=== PATIENT | female | born 1965 | race Caucasian/White ===

== ENCOUNTER 2021-04-11 14:40 | Emergency (ER) | payer OTHER, SELFPAY ==
--- NOTE | ~2021-04-11 | CT_ITS ---
EXAMINATION: CT HEAD WITHOUT CONTRAST CLINICAL INFORMATION: Headache and nausea. COMPARISON: MRI brain dated 12/26/2018. TECHNIQUE: Contiguous axial imaging was performed from the skull base to vertex without intravenous administration of contrast. This CT examination was performed using dose optimization techniques as appropriate, variously including the following: *Automated exposure control *Adjustment of mA and/or kV according to patient size (this includes techniques or standardized protocols for targeted exams where dose is matched to indication/reason for exam; i.e. extremities or head) *Use of iterative reconstruction technique DLP: 560 mGy-cm FINDINGS: There is no evidence of acute intracranial hemorrhage or territorial infarction. No abnormal mass effect or midline shift is seen. Wang to white matter differentiation is well preserved. No extra-axial fluid collections are identified. The ventricles are normal in size. There is no abnormal attenuation within the brain parenchyma. The osseous structures and soft tissues are normal. The mastoid air cells and visualized portions of the paranasal sinuses are well aerated. CT/CT head/brain wo con IMPRESSION: No acute intracranial pathology.
[2021-04-11 15:29] VITALS: BP 179/94; PULSE 89; RESP 18; TEMP 37.2; O2SAT 99; BMI 22.3
--- NOTE | 2021-04-11 16:48 | ECG_ITS ---
Test Reason : CHEST PAIN Blood Pressure : / mmHG Vent. Rate : 066 BPM Atrial Rate : 066 BPM P-R Int : 138 ms QRS Dur : 080 ms QT Int : 432 ms P-R-T Axes : 060 067 033 degrees QTc Int : 452 ms Normal sinus rhythm with sinus arrhythmia Possible Left atrial enlargement Borderline ECG When compared with ECG of 30-NOV-2018 08:28, No significant change was found Referred By: Lois Carty Electronically Signed By:AMADOR JERONIMO
--- NOTE | 2021-04-11 16:54 | ED.HA ---
HPI - Headache General Chief Complaint: Headache Stated Complaint: head pain,vomiting Time Seen by Provider: 04/11/21 16:36 Source: patient Mode of arrival: ambulatory History of Present Illness HPI Narrative: 55-year-old female with a past medical history of colitis, tachycardia, migraines, presenting to the ED complaining of headache, nausea, vomiting x4 days. Headache not maximal in onset, has been waxing and waning. Reports associated chest burning/heartburn likely from emesis, toe cramping, lightheadedness/dizziness and numbness/paresthesias in fingers/toes. Headache pain described as taking entire head, with associated neck pain. Denies visual change/loss, weakness, SOB, abdominal pain, diarrhea Denies taking anticoagulation MD elicited complaint: headache Related Data Home Medications Medication Instructions Recorded Confirmed vohnyklfmx-yztlzuwjfetiv-gzmjsjky 1 tab PO Q4-6H PRN 09/12/20 50 mg-325 mg-40 mg tablet Previous Rx's Medication Instructions Recorded budesonide 3 mg 3 mg PO DAILY #30 cap 07/01/20 capsule,delayed,extended release propranolol 80 mg capsule,24 80 mg PO BEDTIME #30 cap 08/31/20 hr,extended release zolpidem 10 mg tablet 10 mg PO BEDTIME PRN 3 Days #30 tab 02/10/21 sumatriptan succinate 50 mg tablet See Rx Instructions PO .COMPLEX 30 03/29/21 Days #30 tab azithromycin 250 mg tablet See Rx Instructions PO .COMPLEX #6 04/11/21 tab tigcqahvug-npeekqufsatml-nxvmuxaf 1 cap PO Q4-6H PRN #14 cap 04/11/21 50 mg-300 mg-40 mg capsule (Fioricet) ketorolac 10 mg tablet 10 mg PO TID PRN 5 Days #15 tab 04/11/21 ondansetron HCl 4 mg tablet 4 mg PO Q8H PRN #10 tab 04/11/21 (Zofran) Allergies Allergy/AdvReac Type Severity Reaction Status Date / Time levofloxacin [Levaquin] Allergy Unknown chest pains Unverified 12/23/19 00:00 penicillin V Allergy Unknown rash, Verified 12/23/19 00:00 vomiting Sulfa (Sulfonamide Allergy Unknown welts, rash Unverified 12/23/19 00:00 Antibiotics) Penicillins AdvReac Mild RASH Unverified 05/13/20 15:07 NAUSEA VOMITING trazodone AdvReac Unknown nausea, Verified 12/23/19 00:00 dizziness peniciliin Allergy Unknown vomitting/r Uncoded 03/04/19 00:00 danielle Review of Systems Review of Systems: Constitutional: No Fever, + Chills, No Fatigue, No Malaise ENT/Mouth: No Hearing loss, No Ear Pain, No Nasal Congestion, No Swallowing Difficulty Eyes: No Eye Pain, No Swelling, No Redness, No Vision Changes Cardiovascular: + Chest burning, No SOB Respiratory: No Cough, No Dyspnea Gastrointestinal: + Nausea, + Vomiting, No Diarrhea, No Constipation, No Abdominal pain, No Hematochezia, No Melena Genitourinary: No Dysuria, No Urinary Frequency, No Hematuria,, No Flank Pain Musculoskeletal: No joint pain, No Myalgias, No Joint Swelling Skin: No Skin Lesions, No rash Neuro: No Weakness, + Numbness, + Paresthesias, No Loss of Consciousness, + Dizziness, +Lightheadedness, + Headache Yes all other systems are reviewed and are negative Neurologic: Denies Abnormal speech present [facility], [facility] Past Medical History Attestation statement: The following information was validated with the patient. Medical History (Updated 04/11/21 @ 19:51 by EDYTA Olivares) Colitis Tachycardia Social History Social History Use of substances other than those prescribed or required for medical reasons: No Advance Directives: No Advance Directives Information Provided: Yes Patient : No Physical Exam Vital Signs: Vital Signs: Last Vital Signs Temp 98.9 F 04/11/21 15:29 Pulse 89 04/11/21 15:29 Resp 18 04/11/21 15:29 BP 179/94 H 04/11/21 15:29 Pulse Ox 99 04/11/21 15:29 Body Mass Index 22.3 Const: General: cooperative, no acute distress and well developed Orientation/consciousness: patient oriented x3 Limitations: no limitations HENMT: Head: Yes normal to inspection Ears: hearing grossly normal bilaterally General nose exam: Normal external nose present Face and sinus: Yes normal facial exam Mouth: Normal oral and palatal mucosa present Throat: Yes posterior oropharynx normal Eyes: General: appearance normal, both eyes and all related structures Pupils: Equal, round and reactive pupils present EOM: EOMs intact bilaterally Neck: Neck: Yes normal visual inspection and Yes no meningeal signs Resp: Effort & Inspection: normal respiratory effort Auscultation: clear to auscultation bilaterally, no rales, no rhonchi and no wheezes Cardio: Rate: regular rate Heart sounds: S1 normal heart sound present and S2 normal heart sound present GI: Inspection: Yes normal to inspection Palpation (GI): Soft to palpation, nontender, no guarding and not rigid Skin: Rashes: no rashes Wounds: no wounds Neuro: General: patient oriented x3, gait normal, tone normal, moves all extremities, no meningeal signs, no focal motor deficits and CN's II-XI intact bilaterally Cranial nerves: Yes Equal, round and reactive pupils present and Yes Nystagmus not present Cognition (Neuro): normal cognition Speech: No Abnormal speech present Gait exam (Neuro): Normal gait present Motor exam (neuro): 5/5 motor strength present throughout, Pronator motor function not present and no tremor noted Coordination: mhnwgd-im-wapt test normal Romberg Test: Negative Extrem: General: Yes normal to inspection and Yes no pedal edema Course Course Course Narrative: -labs unremarkable, troponin negative CT head/brain wo con IMPRESSION: No acute intracranial pathology. >>1920--on re-evaluation patient reports symptomatic improvement. Lab and imaging results discussed including worrisome signs and symptoms and strict return precautions. She verbalized understanding feel safe for discharge home MDM - Headache MDM Narrative Medical decision making narrative: 55-year-old female with a past medical history of colitis, tachycardia, migraines, presenting to the ED complaining of headache, nausea, vomiting x4 days. Reports associated chest burning/heartburn, toe cramping, lightheadedness/dizziness and numbness/paresthesias in fingers/toes. On exam VSS, NAD, no focal neuro deficits, concern for complicated migraine headache. Lower concern for SAH/ICH or CVT. Unlikely meningitis/encephalitis Plan: EKG, labs, UA, head CT, symptomatic treatment, reassess Medical Records Attestation: I reviewed the patient's medical records. Lab Data Attestation: I reviewed the patient's lab results. Result diagrams: 04/11/21 17:05 04/11/21 17:05 Labs: Lab Results 04/11/21 04/11/21 04/11/21 Range/Units 17:05 17:05 17:05 WBC 8.0 (4.8-10.8) X10*3/uL RBC 4.79 (4.20-5.50) X10*6/uL Hgb 14.9 (12.0-16.0) g/dl Hct 43.7 (37-47) % MCV 91.2 (80-98) fL MCH 31.1 (27.0-33.0) pg MCHC 34.1 (31.0-35.0) g/dl RDW 12.6 (11.0-16.0) % Plt Count 285 (160-400) X10*3/uL MPV 9.7 (9.4-12.3) fL Immature Gran % (Auto) 0.3 (0.0-0.4) % Neut % (Auto) 79.1 H (45-73) % Lymph % (Auto) 15.4 L (20-40) % [place] % (Auto) 4.3 (2-11) % Eos % (Auto) 0.4 (0-4) % Baso % (Auto) 0.5 (0-2) % Lymph # (Auto) 1.2 (1.2-4.9) X10*3/uL [place] # (Auto) 0.3 (0.1-1.2) X10*3/uL Eos # (Auto) 0.0 (0.0-0.4) X10*3/uL Baso # (Auto) 0.0 (0.0-0.2) X10*3/uL Abs Immat Gran (auto) 0.02 (0.00-0.03) X10*3/uL Absolute Neuts (auto) 6.3 (2.0-8.3) X10*3/uL Absolute Nucleated RBC 0.000 (0.0-0.012) X10*3/uL Nucleated RBC % (auto) 0.0 (0.0-0.2) /100WBC Sodium 140 (135-145) mmol/L Potassium 4.1 (3.3-5.1) mmol/L Chloride 104 (96-108) mmol/L Carbon Dioxide 23 (22-29) mmol/L Anion Gap 17 (12-20) BUN 15 (9-16) mg/dL Creatinine 0.78 (0.5-1.4) mg/dL Estim Creat Clear Calc 65.8 Estimated GFR > 60 Random Glucose 119 H (60-115) mg/dL Calcium 10.3 H (8.4-10.2) mg/dL Magnesium 2.3 (1.6-2.6) mg/dL Total Bilirubin 0.9 (0.0-1.0) mg/dL Direct Bilirubin 0.4 (0.0-0.5) mg/dL AST 12 (5-31) U/L ALT 15 (0-31) U/L Alkaline Phosphatase 37 L (39-117) U/L Troponin I High Sens < 3.5 (<3.5-17.0) ng/L Total Protein 7.6 (6.5-8.0) g/dL Albumin 4.7 (3.5-5.0) g/dL Discharge Plan Discharge Clinical Impression: Headache Qualifiers: Headache type: unspecified Headache chronicity pattern: episodic headache Intractability: not intractable Qualified Code(s): R51.9 - Headache, unspecified Patient Disposition: Home, Self-Care Instructions: Acute Headache (ED) Additional Instructions: Your blood work and head CT were reassuring today Fioricet is a headache medication, take as needed Ketorolac is an anti-inflammatory/pain medication, take with food Zofran as antinausea medication If her symptoms persist or worsen, headache becomes unbearable, persistent nausea or vomiting please return to the ED Continue home prescribed medications and follow up with her PCP Prescriptions: New ketorolac 10 mg tablet 10 mg PO TID PRN (Reason: pain) 5 Days Qty: 15 RF: 0 ondansetron HCl [Zofran] 4 mg tablet 4 mg PO Q8H PRN (Reason: nausea and vomiting) Qty: 10 RF: 0 wbclqminiw-pfezwubfazddz-mzjo [Fioricet] 50-300-40 mg capsule 1 cap PO Q4-6H PRN (Reason: headache) Qty: 14 RF: 0 No Action budesonide 3 mg capsule,delayed,extend.release 3 mg PO DAILY Qty: 30 RF: 3 propranolol 80 mg capsule,extended release 24 hr 80 mg PO BEDTIME Qty: 30 RF: 3 wseykmcauh-rtwvcblfbbrwy-opsz 50-325-40 mg tablet 1 tab PO Q4-6H PRNRF: 0 zolpidem 10 mg tablet 10 mg PO BEDTIME PRN (Reason: insomnia) 3 Days Qty: 30 RF: 2 sumatriptan succinate 50 mg tablet See Rx Instructions PO .COMPLEX 30 Days Qty: 30 RF: 3 azithromycin 250 mg tablet See Rx Instructions PO .COMPLEX Qty: 6 RF: 0 Referrals: Brice Gallagher MD [Primary Care Provider] - 2 days
[2021-04-11 17:09] LABS: MANUAL DIFF FLAG NO
[2021-04-11 17:13] LABS: Basophils Percent Auto 0.5 % (0-2); Eosinophils Percent Auto 0.4 % (0-4); Hematocrit 43.7 % (37-47); Hemoglobin 14.9 g/dl (12.0-16.0); Imm Gran Abs Auto 0.02 X10*3/uL (0.00-0.03); Imm Gran Pct Auto 0.3 % (0.0-0.4); Lymphocytes Absolute Auto 1.2 X10*3/uL (1.2-4.9); Lymphocytes Percent Auto 15.4 % (20-40); Mean Corpuscular HGB Conc 34.1 g/dl (31.0-35.0); Mean Corpuscular Hemoglobin 31.1 pg (27.0-33.0); Mean Corpuscular Volume 91.2 fL (80-98); Mean Platelet Volume 9.7 fL (9.4-12.3); Monocytes Absolute Auto 0.3 X10*3/uL (0.1-1.2); Monocytes Percent Auto 4.3 % (2-11); Neutrophils Absolute Auto 6.3 X10*3/uL (2.0-8.3); Neutrophils Percent Auto 79.1 % (45-73); Platelet Count 285 X10*3/uL (160-400); Red Blood Count 4.79 X10*6/uL (4.20-5.50); Red Cell Distribution Width 12.6 % (11.0-16.0)
[2021-04-11] MEDS: diphenhydrAMINE HCL 50 MG/ML VIAL 12.5 MG IVPUSH (17:17)
[2021-04-11] MEDS: Metoclopramide HCl 10 MG/2 ML VIAL IVPUSH (17:18)
[2021-04-11] MEDS: Famotidine/PF 20 MG/2 ML VIAL IVPUSH (17:18)
[2021-04-11] MEDS: Acetaminophen 325 MG TABLET 650 MG PO (17:18)
[2021-04-11] MEDS: Magnesium Hydrox/Alum Hydrox 30 ML ORAL.SUSP PO (17:18)
[2021-04-11] MEDS: Magnesium Sulfate/H2O 2 GM/50 ML PIGGYBACK IV (17:18)
[2021-04-11] MEDS: 0.9 % Sodium Chloride 1,000 ML 999 ML IVCONT (17:21)
[2021-04-11 17:33] LABS: Alanine Aminotransferase 15 U/L (0-31); Albumin Level 4.7 g/dL (3.5-5.0); Alkaline Phosphatase 37 U/L (39-117); Anion Gap 17 (12-20); Aspartate Amino Transferase 12 U/L (5-31); Bilirubin Direct 0.4 mg/dL (0.0-0.5); Bilirubin Total 0.9 mg/dL (0.0-1.0); Blood Urea Nitrogen 15 mg/dL (9-16); Calcium 10.3 mg/dL (8.4-10.2); Carbon Dioxide 23 mmol/L (22-29); Chloride 104 mmol/L (96-108); Creatinine Clr Calc Pharmacy 65.8; Estimated Glomerular Filt Rate > 60; Glucose Random 119 mg/dL (60-115); Magnesium 2.3 mg/dL (1.6-2.6); Potassium 4.1 mmol/L (3.3-5.1); Sodium 140 mmol/L (135-145); Total Protein 7.6 g/dL (6.5-8.0)
[2021-04-11 17:38] LABS: Troponin-I High Sensitivity < 3.5 ng/L (<3.5-17.0)
--- NOTE | 2021-04-11 19:13 | PC.NURSE ---
PT STATES IM FEELING MUCH BETTER, RATING PAIN 5/10. EDYTA SOSA AWARE.
== END 2021-04-11 20:23 | disposition home or self-care (01) ==
PROVIDERS: Physician Assistant; Emergency Provider Emergency Medicine; PCP Internal Medicine
DX: R51.9 Headache, unspecified (principal)
CPT/HCPCS: 36415; 70450; 80048; 80076; 83735; 84484; 85025; 93005; 96361; 96365; 96366; 96375; 99284; 99285; J1200; J2765; J3475

== ENCOUNTER → 2021-04-20 13:00 | Outpatient (BNVA) | payer OTHER, SELFPAY | PROVIDERS: PCP Internal Medicine; Referring Provider Internal Medicine; Visit Provider Internal Medicine ==

== ENCOUNTER → 2021-04-26 07:07 | Outpatient (REF) | payer OTHER, SELFPAY ==
--- NOTE | 2021-04-26 07:32 | HM_ITS ---
Total monitoring time 13 days and 12 hours. Underlying rhythm is sinus. Minimum heart rate 55/Min. Maximum 139/Min. Average 74/Min. No atrial fibrillation or flutter. No AV blocks or pauses. Very rare supraventricular ectopy. During patient's symptom of rapid heartbeat, underlying rhythm was sinus at 91/Min. Another time, patient event reported but no symptoms mentioned, and heart rate was sinus at 71/Min. MTDD
== END ==
LOC: HO.CARD 07:07
PROVIDERS: PCP Internal Medicine; Visit Provider Internal Medicine
DX: R00.2 Palpitations (principal)
CPT/HCPCS: 93246

== ENCOUNTER 2021-05-14 08:35 | Outpatient (REF) | payer OTHER, SELFPAY ==
[2021-05-14 09:05] LABS: MANUAL DIFF FLAG NO
[2021-05-14 09:11] LABS: Basophils Absolute Auto 0.1 X10*3/uL (0.0-0.2); Eosinophils Absolute Auto 0.2 X10*3/uL (0.0-0.4); Hematocrit 41.7 % (37-47); Imm Gran Abs Auto 0.02 X10*3/uL (0.00-0.03); Imm Gran Pct Auto 0.4 % (0.0-0.4); Lymphocytes Absolute Auto 1.2 X10*3/uL (1.2-4.9); Lymphocytes Percent Auto 23.6 % (20-40); Mean Corpuscular HGB Conc 33.6 g/dl (31.0-35.0); Mean Corpuscular Volume 92.3 fL (80-98); Mean Platelet Volume 9.7 fL (9.4-12.3); Monocytes Absolute Auto 0.5 X10*3/uL (0.1-1.2); Monocytes Percent Auto 9.8 % (2-11); Neutrophils Absolute Auto 3.2 X10*3/uL (2.0-8.3); Neutrophils Percent Auto 61.2 % (45-73); Platelet Count 271 X10*3/uL (160-400); Red Blood Count 4.52 X10*6/uL (4.20-5.50); White Blood Count 5.2 X10*3/uL (4.8-10.8)
[2021-05-14 09:58] LABS: Erythrocyte Sedimentation Rate 7 MM/HR (0-20)
[2021-05-14 10:09] LABS: Appearance Urine HAZY; Color Urine YELLOW; Glucose Urine UA NEG (NEG); Leukocyte Esterase Urine 2+ (NEG); Nitrite Urine NEG (NEG); PH 5.5 (5.0-8.0); Specific Gravity - Urine >= 1.030 (1.005-1.025); UACC Culture Trigger YES; Urine Blood 1+ (NEG); Urine Ketones NEG (NEG); Urine Protein NEG (NEG-TRACE)
[2021-05-14 10:21] LABS: TSH reflex Free T4 1.34 uIU/mL (0.32-4.0); Vitamin D 25-OH Total 19.8 ng/mL (>30)
[2021-05-14 10:22] LABS: Alanine Aminotransferase 17 U/L (0-31); Albumin Level 4.4 g/dL (3.5-5.0); Alkaline Phosphatase 40 U/L (39-117); Anion Gap 10 (12-20); Aspartate Amino Transferase 11 U/L (5-31); Bilirubin Total 0.8 mg/dL (0.0-1.0); Blood Urea Nitrogen 13 mg/dL (9-16); Calcium 9.3 mg/dL (8.4-10.2); Carbon Dioxide 25 mmol/L (22-29); Chloride 109 mmol/L (96-108); Cholesterol 187 mg/dL; Estimated Glomerular Filt Rate > 60; Glucose Fasting 103 mg/dL (60-99); HDL Cholesterol 43 mg/dL; LDL Cholesterol Calculated 119 mg/dl; Potassium 4.1 mmol/L (3.3-5.1); Sodium 140 mmol/L (135-145); Total Protein 6.9 g/dL (6.5-8.0); Triglycerides 129 mg/dL
[2021-05-14 10:26] LABS: Bacteria Urine TRACE /LPF; Mucus Urine 2+ /LPF; Squamous Epithelial Cell Urine 4+ /LPF; WBC Urine 30-49 /HPF (0-4)
[2021-05-16 15:02] LABS: Anti DNA DS Antibody 1 IU/mL
[2021-05-16 15:41] LABS: Anti Nuclear Antibody Screen NEGATIVE (NEGATIVE)
== END 2021-05-14 08:36 | disposition home or self-care (01) ==
LOC: HO.LAB 08:35
PROVIDERS: PCP Internal Medicine; Visit Provider Internal Medicine
DX: Z00.00 Encounter for general adult medical examination without abnormal findings (principal); E78.00 Pure hypercholesterolemia, unspecified; E55.9 Vitamin D deficiency, unspecified; R76.8 Other specified abnormal immunological findings in serum; M79.7 Fibromyalgia; I10 Essential (primary) hypertension
CPT/HCPCS: 36415; 80053; 80061; 81001; 81003; 82306; 84443; 85025; 85652; 86038; 86039; 86140; 86225; 87086

== ENCOUNTER → 2021-06-01 14:58 | Outpatient (REF) | payer OTHER, SELFPAY ==
--- NOTE | 2021-06-01 15:01 | CA_ITS ---
Transthoracic Echocardiogram Patient (Last, First, Middle): Mayra Hull A Gender: Female Date of : 1965 Age: 56 Procedure Date: 06/01/2021 Procedure Type: Transthoracic Echocardiogram Location: OP Height: 162.56 cm Weight: 55.79 kg BSA: 1.59 m2 Heart Rate: bpm BP: 120 / 70 mmHg Health Promotion Officer: GENARO/LUCIANA Referring MD: Waldo West MD Symptoms: R00.2 - Palpitations Study Quality: Fair Conclusions: - The left ventricular systolic function is normal. The calculated ejection fraction is 56% by biplane method. - No obvious valvular pathology seen on this study. Findings Left Ventricle Normal left ventricular cavity size. There is normal left ventricular wall thickness. The left ventricular systolic function is normal. The calculated ejection fraction is 56% by biplane method. There is no evidence of regional wall motion abnormalities. Diastolic function is normal for age. Right Ventricle Normal right ventricular cavity size and systolic function. Atria Both atria are normal in size. Aortic Valve There is a normal trileaflet aortic valve. There is no aortic valve stenosis. There is no aortic valve regurgitation. Mitral Valve The mitral valve appears normal. There is trace mitral valve regurgitation. There is no mitral valve stenosis. Pulmonic Valve The pulmonic valve was not well visualized. Tricuspid Valve Normal tricuspid valve structure. There is no tricuspid valve regurgitation. Tricuspid regurgitation envelope is inadequate for calculation of right ventricular systolic pressure. Great Vessels The aortic annulus, sinuses of valsalva, asc aorta, and aortic arch are normal in size. Venous The inferior vena cava is normal in size and collapses greater than 50% with inspiration. Pericardium/Pleural There is no evidence of pericardial effusion. Prior Study Comparison No significant change compared to prior study dated: 01/08/2006. Recommendations, Care & Conclusions No obvious valvular pathology seen on this study. Measurements 2D Linear Measurements IVSd: 0.75 0.6-0.9/0.6-1.0 cm LVIDd: 4.32 3.9-5.3/4.2-5.9 cm LVIDd Index: 2.72 2.4-3.2/2.2-3.1 cm/m2 LVIDs: 2.54 2.0-3.6 cm LVPWd: 0.69 0.7-1.1 cm Ao Root: 2.90 2.1-3.5 cm LA Diam: 2.70 2.7-3.8/3.0-4.0 cm LAIDs Index: 1.70 1.5-2.3 cm/m2 LV Mass: 114.90 67-162/88-224 g LV Mass Index: 72.26 43-95/49-115 g/m2 LVOT Diam: 2.00 3.0+(-)1.3 cm 2D Systolic Function EF 4C: 54.70 >55% EF 2C: 57.50 >55% EF BiP: 55.70 >55% Mitral Valve MV Pk E: 0.70 MV PK A: 0.51 MV Decel Time: 251.00 E/A: 1.40 E'Lateral: 13.60 E'Medial: 10.00 E/E' Med: 7.00 E/E' Lat: 5.10 PHT: 74.00 MVA PHT: 2.97 Decel Estill: 2.78 Aortic Valve AoV Pk Sawyer: 1.06 AoV Mn Sawyer: 0.81 AoV VTI: 0.23 AoV Pk Grad: 4.00 Aov Mn Grad: 3.00 COURTNEY Cont.VTI: 2.64 LVOT LVOT Pk Sawyer: 0.78 LVOT Mn Sawyer: 0.59 LVOT VTI: 0.19 LVOT Pk Grad: 2.00 LVOT Mn Grad: 2.00 LVOT Diam: 2.00 LVOT Area: 3.14 Diastolic Function MV Pk E: 0.70 MV Pk A: 0.51 E/A: 1.40 E'Medial: 10.00 E/E' Med: 7.00 E' Laterial: 13.60 E/E' Lat: 5.10 Tricuspid Valve RA Press: 3.00 Great Vessels Aorta Ao Root-2D: 2.90 2.0-3.7 cm Ao Asc: 2.90 2.1-3.4 cm Ao Arch: 2.40 Updated in Other Vendor System with Status of Final Waldo West MD electronically signed on 06/01/2021 4:18:39 PM with status of Final
== END ==
LOC: HO.CARD 14:58
PROVIDERS: PCP Internal Medicine; Visit Provider Internal Medicine
DX: R00.2 Palpitations (principal)
CPT/HCPCS: 93306

== ENCOUNTER → 2021-07-13 14:42 | Outpatient (BNVA) | payer OTHER, SELFPAY | PROVIDERS: PCP Internal Medicine; Referring Provider Internal Medicine; Visit Provider Nurse Practitioner Family ==

== ENCOUNTER 2021-10-25 12:22 | Outpatient (REF) | payer OTHER, SELFPAY ==
--- NOTE | ~2021-10-25 | MM_ITS ---
EXAMINATION: MM SCREENING DIGITAL BREAST TOMOSYNTHESIS, BILATERAL CLINICAL INFORMATION: Screening. Asymptomatic. The lifetime risk of breast cancer based on the Tyrer-Cuzick Model is 6%. COMPARISON: Mammography: 11/19/2018, 10/26/2016 TECHNIQUE: Digital breast tomosynthesis is performed in both the craniocaudal and mediolateral oblique views along with computer-aided detection (CAD). Synthesized 2D images are generated from the tomosynthesis. FINDINGS: There are scattered areas of fibroglandular density (ACR BI-RADS breast composition Category b). There are no significant masses, abnormal calcifications, or other abnormalities. Parenchymal pattern is similar to prior studies. There are no significant changes. MM/MM tomosynthesis screening BI IMPRESSION: No mammographic evidence of malignancy. ASSESSMENT: BI-RADS 1: Negative RECOMMENDATION: Routine annual mammography screening. This patient's information was entered into a reminder system with a target due date for their next mammogram.
== END 2021-10-25 12:23 | disposition home or self-care (01) ==
LOC: HO.MAMMO 12:22
PROVIDERS: PCP Internal Medicine; Visit Provider Internal Medicine
DX: Z12.31 Encounter for screening mammogram for malignant neoplasm of breast (principal)
CPT/HCPCS: 77063; 77067

== ENCOUNTER → 2021-11-07 11:52 | Outpatient (BNVA) | payer OTHER, SELFPAY | PROVIDERS: PCP Internal Medicine; Referring Provider Internal Medicine; Visit Provider Internal Medicine Gastroenterology | DX: K52.832 Lymphocytic colitis (principal) | CPT/HCPCS: 99212 ==

== ENCOUNTER 2021-11-10 13:50 | Outpatient (REF) | payer OTHER, SELFPAY ==
[2021-11-10 14:12] LABS: MANUAL DIFF FLAG NO
[2021-11-10 14:16] LABS: Basophils Absolute Auto 0.1 X10*3/uL (0.0-0.2); Basophils Percent Auto 0.9 % (0-2); Eosinophils Absolute Auto 0.2 X10*3/uL (0.0-0.4); Eosinophils Percent Auto 3.4 % (0-4); Hematocrit 40.9 % (37.0-47.0); Hemoglobin 13.2 g/dl (12.0-16.0); Imm Gran Abs Auto 0.02 X10*3/uL (0.00-0.03); Imm Gran Pct Auto 0.4 % (0.0-0.4); Lymphocytes Absolute Auto 1.5 X10*3/uL (1.2-4.9); Lymphocytes Percent Auto 28.3 % (20-40); Mean Corpuscular HGB Conc 32.3 g/dl (31.0-35.0); Mean Corpuscular Hemoglobin 30.6 pg (27.0-33.0); Mean Corpuscular Volume 94.7 fL (80.0-98.0); Mean Platelet Volume 9.7 fL (9.4-12.3); Monocytes Absolute Auto 0.4 X10*3/uL (0.1-1.2); Monocytes Percent Auto 8.3 % (2-11); Neutrophils Absolute Auto 3.1 x10*3/uL (2.0-8.3); Neutrophils Percent Auto 58.7 % (45-73); Platelet Count 257 X10*3/uL (160-400); Red Blood Count 4.32 X10*6/uL (4.20-5.50); Red Cell Distribution Width 12.7 % (11.0-16.0); White Blood Count 5.3 X10*3/uL (4.8-10.8)
[2021-11-10 14:57] LABS: Alanine Aminotransferase 13 U/L (0-31); Albumin Level 4.3 g/dL (3.5-5.0); Alkaline Phosphatase 38 U/L (39-117); Anion Gap 12 (12-20); Aspartate Amino Transferase 11 U/L (5-31); Bilirubin Total 0.7 mg/dL (0.0-1.0); Blood Urea Nitrogen 15 mg/dL (9-16); C Reactive Protein 0.17 mg/dL (< or = 0.50); Calcium 9.5 mg/dL (8.4-10.2); Carbon Dioxide 25 mmol/L (22-29); Chloride 109 mmol/L (96-108); Estimated Glomerular Filt Rate > 60; Glucose Random 88 mg/dL (60-115); Potassium 3.7 mmol/L (3.3-5.1); Sodium 142 mmol/L (135-145); Total Protein 7.1 g/dL (6.5-8.0)
[2021-11-10 15:34] LABS: Folate 11.8 ng/mL (> or = 4.0); Vitamin B12 189 pg/mL (200-900)
[2021-11-10 15:44] LABS: Ferritin 299 ng/mL (10-250)
[2021-11-12 13:46] LABS: IgA 167 mg/dL (47-310); IgG 1143 mg/dL (600-1640); IgM 40 mg/dL (50-300)
[2021-11-14 15:46] LABS: Transglutaminase Ab IgG <1.0 U/mL; Transglutaminase IgA <1.0 U/mL
[2021-11-15 02:46] LABS: Zinc 62 mcg/dL (60-130)
[2021-11-15 15:15] LABS: Vitamin C 0.5 mg/dL (0.3-2.7)
[2021-11-15 17:32] LABS: Histamine Plasma <1.5 ng/mL (< OR = 1.8)
[2021-11-16 11:56] LABS: Gliadin Deamidated IgA Ab <1.0 U/mL; Gliadin Deamidated IgG Ab <1.0 U/mL
== END 2021-11-10 13:51 | disposition home or self-care (01) ==
LOC: HO.LAB 13:50
PROVIDERS: PCP Internal Medicine; Visit Provider Internal Medicine Gastroenterology
DX: R10.33 Periumbilical pain (principal); K52.832 Lymphocytic colitis; R76.8 Other specified abnormal immunological findings in serum; K75.81 Nonalcoholic steatohepatitis (NASH); R19.7 Diarrhea, unspecified; G89.29 Other chronic pain
CPT/HCPCS: 36415; 80053; 82180; 82607; 82728; 82746; 82784; 83088; 83520; 84630; 85025; 86140; 86258; 86364

== ENCOUNTER 2021-11-12 09:31 | Outpatient (REF) | payer OTHER, SELFPAY ==
[2021-11-12 10:50] LABS: CDiff Gene PCR NEGATIVE (Negative)
[2021-11-17 10:10] LABS: Fecal Fat Qualitative NORMAL (NORMAL)
[2021-11-17 19:11] LABS: Pancreatic Elastase-1 247 mcg/g
[2021-11-23 02:51] LABS: Lactoferrin, Fecal, Quant. <30.0 mcg/mL
== END 2021-11-12 09:32 | disposition home or self-care (01) ==
LOC: HO.LNP 09:31
PROVIDERS: Visit Provider Internal Medicine Gastroenterology
DX: K52.832 Lymphocytic colitis (principal); R76.8 Other specified abnormal immunological findings in serum
CPT/HCPCS: 82656; 82705; 83631; 87493

== ENCOUNTER 2021-12-27 13:46 | Outpatient (REF) | payer OTHER, SELFPAY ==
--- NOTE | ~2021-12-27 | CT_ITS ---
EXAMINATION: CT ENTEROGRAPHY ABDOMEN AND PELVIS WITH CONTRAST CLINICAL INFORMATION: Periumbilical pain COMPARISON: Previous CT of the abdomen and pelvis from 2010 TECHNIQUE: Study performed with oral VoLumen (1350 mL) and 480 mL of water to distend the abdomen. The patient was injected with 85 mL Omnipaque 350 intravenous contrast which was administered without adverse effect. Coronal and sagittal reformatted images were obtained at the technologist's workstation. This CT examination was performed using dose optimization techniques as appropriate, variously including the following: *Automated exposure control *Adjustment of mA and/or kV according to patient size (this includes techniques or standardized protocols for targeted exams where dose is matched to indication/reason for exam; i.e. extremities or head) *Use of iterative reconstruction technique DLP: 249 mGy-cm FINDINGS: GASTROINTESTINAL FINDINGS: Stomach: Well-distended. There is question of focal wall thickening/mass of the distal stomach/antrum versus changes due to peristalsis/contraction, axial image 27 series 5. Small intestine: Satisfactorily distended and normal in appearance. Residual small duodenal diverticulum adjacent to the head of the pancreas. Large intestine: There is stool throughout the colon. No wall thickening or enhancement is seen. There is prominence of the vessels vasa recta adjacent to the colon. No perirectal changes demonstrated. The appendix is not seen. Additional findings: No significant mesenteric or retroperitoneal lymphadenopathy is seen. No abdominal abscess or fistulous tract demonstrated. ABDOMINAL AND PELVIC CT FINDINGS: Liver, gallbladder, biliary tract: There is a 1 cm cyst in the medial segment of the left lobe of the liver axial image 23 series 5. There is a smaller 3 mm low-attenuation lesion in the lateral segment of the left lobe of the liver also probably representing a cyst axial image 12 series 5. The liver is unremarkable. The gallbladder has been removed. Pancreas: Normal Spleen: Normal Adrenal glands and kidneys: Normal Ureters and bladder: Normal Lymphovascular structures: Normal Bones: Normal Lung bases: The lung bases are clear. The uterus is enlarged and heterogeneous in attenuation with some focal calcifications. This probably represents a fibroid uterus. CT/CT enterography IMPRESSION: Question focal wall thickening/mass of the distal stomach/antrum. Prominent vasa recta adjacent to the colon. No evidence of active colitis. Liver cyst. Enlarged probable fibroid uterus.
[2021-12-27 14:26] LABS: Blood Urea Nitrogen 14 mg/dL (9-16); Estimated Glomerular Filt Rate > 60
[2021-12-27] MEDS: Sorbitol/Mannit/Xanth Imaging 500 ML LIQUID 1500 ML PO (16:15)
[2021-12-27] MEDS: iohexoL 350 MG/ML 100 ML INFUS..BTL 85 ML IV (16:16)
== END 2021-12-27 13:47 | disposition home or self-care (01) ==
LOC: HO.US 13:46
PROVIDERS: Visit Provider Internal Medicine Gastroenterology
DX: R10.33 Periumbilical pain (principal); K52.832 Lymphocytic colitis; R76.8 Other specified abnormal immunological findings in serum
CPT/HCPCS: 36415; 74177; 82565; 84520; Q9967

== ENCOUNTER 2022-02-09 10:34 | Day surgery (SDC) | payer OTHER, SELFPAY ==
[2022-02-03 09:18] VITALS: BMI 20.9
--- NOTE | 2022-02-08 10:11 | P.CONAN_ITS ---
Documented by User: Valeria Jain NP 02/08/22 10:13 HPI - Anesthesia Eval Consult details Narrative: 56yo F for Upper Endoscopy and Colonoscopy PMFSH Active Problems Active Problems: All Active Problems (Updated 02/03/22 @ 09:48 by Yanet Summers RN) Sinus infection (Acute) Annual physical exam (Acute) Primary insomnia (Acute) Chest discomfort (Acute) Rash (Acute) Sinusitis (Acute) Family history of early CAD (Acute) Positive GURU (antinuclear antibody) (Acute) Vitamin D deficiency (Acute) Varicose veins of both lower extremities with pain (Acute) Lymphocytic colitis (Acute) Palpitations (Acute) Migraine (Acute) Past Medical History Medical History Colitis COVID-19 vaccine series completed History of COVID-19 Tachycardia Family History Family History Father Cancer of pancreas Mother CVD (cardiovascular disease) Brother CVD (cardiovascular disease) Paternal Uncle Colon cancer Surgical History Surgical History (Updated 02/03/22 @ 08:52 by Yanet Summers RN) H/O section History of colonoscopy History of dilatation and curettage History of esophagogastroduodenoscopy (EGD) History of tubal ligation Hx of cholecystectomy Hx of resection of rib Status post laser ablation of incompetent vein (~03/2018) Social History Social History Housing: House Alcohol intake: current Alcohol intake frequency: holidays/special occasions only Patient Tobacco Use Status: Never used Tobacco e-Cigarette/Vaping Use: Never Used Second Hand Smoke Exposure: Yes Advance Directives: No Advance Directives Information Provided: Yes Patient : No service: No Current occupational status: employed Current occupation: health care Cognitive needs: No Hearing needs: No Vision needs: Yes (Glasses) Meds Allergies Allergy/AdvReac Type Severity Reaction Status Date / Time levofloxacin [Levaquin] Allergy Intermediate chest pains Verified 02/03/22 08:51 penicillin V Allergy Intermediate rash, Verified 02/03/22 08:51 vomiting Sulfa (Sulfonamide Allergy Intermediate welts, rash Verified 02/03/22 08:51 Antibiotics) trazodone AdvReac Intermediate nausea, Verified 02/03/22 08:51 dizziness Home Medications Medication Instructions Recorded Confirmed Last Taken Type budesonide 3 mg 3 mg PO DAILY PRN Cough 07/13/21 02/03/22 Unknown History capsule,delayed,extended release Exam Exam Date and Time: February 08, 2022 1011 Height,Weight and Vital Signs: Height 5 ft 3 in Weight 53.524 kg Pertinent Lab Results Pertinent Lab Results: Laboratory Tests 11/10/21 11/10/21 12/27/21 14:09 14:09 14:10 WBC 5.3 Hgb 13.2 Hct 40.9 Plt Count 257 Sodium 142 Potassium 3.7 Chloride 109 H Carbon Dioxide 25 BUN 14 Creatinine 0.76 Narrative Narrative: EKG 2020 Vent. Rate : 066 BPM ? ? Atrial Rate : 066 BPM ?? P-R Int : 138 ms? QRS Dur : 080 ms ? ? QT Int : 432 ms ? ? ? P-R-T Axes : 060 067 033 degrees ?? QTc Int : 452 ms ? Normal sinus rhythm with sinus arrhythmia Possible Left atrial enlargement Borderline ECG When compared with ECG of 30-NOV-2018 08:28, No significant change was found Holter 2020 Total monitoring time 13 days and 12 hours.? Underlying rhythm is sinus.? Minimum heart rate 55/Min.? Maximum 139/Min.? Average 74/Min.? No atrial fibrillation or flutter.? No AV blocks or pauses.? Very rare supraventricular ectopy.? During patient's symptom of rapid heartbeat, underlying rhythm was si nus at 91/Min.? Another time, patient event reported but no symptoms mentioned, and heart rate was sinus at 71/Min. ECHO 2020 Conclusions: - The left ventricular systolic function is normal.? The ? calculated ejection fraction is 56% by biplane method. ? - No obvious valvular pathology seen on this study.? Findings Left Ventricle Normal left ventricular cavity size.? There is normal left ventricular wall thickness.? The left ventricular systolic function is normal.? The calculated ejection fraction is 56% by biplane method.? There is no evidence of regional wall motion abnormalities.? Diastolic function is normal for age. Assessment and Plan Assessment Anesthesia Assessment: Chart Reviewed Documented by User: Alley Marrufo MD 02/09/22 11:57 PMFSH Past Medical History Medical History Colitis COVID-19 vaccine series completed History of COVID-19 Tachycardia Functional capacity: independent ambulation Patient : No Family History Family History Father Cancer of pancreas Mother CVD (cardiovascular disease) Brother CVD (cardiovascular disease) Paternal Uncle Colon cancer Family history of problems with anesthesia: No Surgical History Surgical History (Updated 02/03/22 @ 08:52 by Yanet Summers RN) H/O section History of colonoscopy History of dilatation and curettage History of esophagogastroduodenoscopy (EGD) History of tubal ligation Hx of cholecystectomy Hx of resection of rib Status post laser ablation of incompetent vein (~03/2018) History of Problems with Anesthesia: No Social History Social History Housing: House Alcohol intake: current Alcohol intake frequency: holidays/special occasions only Patient Tobacco Use Status: Never used Tobacco e-Cigarette/Vaping Use: Never Used Second Hand Smoke Exposure: Yes Advance Directives: No Advance Directives Information Provided: Yes Patient : No service: No Current occupational status: employed Current occupation: health care Cognitive needs: No Hearing needs: No Vision needs: Yes (Glasses) Meds Allergies Allergy/AdvReac Type Severity Reaction Status Date / Time levofloxacin [Levaquin] Allergy Intermediate chest pains Verified 02/03/22 08:51 penicillin V Allergy Intermediate rash, Verified 02/03/22 08:51 vomiting Sulfa (Sulfonamide Allergy Intermediate welts, rash Verified 02/03/22 08:51 Antibiotics) trazodone AdvReac Intermediate nausea, Verified 02/03/22 08:51 dizziness Home Medications Medication Instructions Recorded Confirmed Last Taken Type budesonide 3 mg 3 mg PO DAILY PRN Cough 07/13/21 02/03/22 Unknown History capsule,delayed,extended release Exam Airway Mallampati Class: II TM Dist: >3cm Neck ROM: Full Heart: RRR Lungs: CTA Assessment and Plan Final Anesthetic Review Family History of Problems with Anesthesia: No History of Problems with Anesthesia: No ASA Class: II Final Preanesthetic Review: No Changes in Pt Med Stat, Meds/Allgs Chart Reviewed, Consent Obtained/Reviewed and Anes Risks/Benef Reviewed Patient Risk: Low Procedure Risk: Low Anesthetic Plan Anesthetic Plan: MAC: Disposition: Standard PACU
[2022-02-09 10:42] VITALS: BP 122/76; PULSE 70; RESP 16; TEMP 36.1; O2SAT 99
[2022-02-09] MEDS: Lactated Ringers 1,000 ML 100 ML IVCONT (10:59)
--- NOTE | 2022-02-09 11:23 | P.HPSUR_ITS ---
Pre-Procedural Eval Section A Date of Service: 02/09/22 Section B Chief Complaint: Diarrhea, Details of Present Illness: CRC uncle--60, father with pancreas ca ages 65 Relevant Family History (Specify if Yes): Yes Relevant Social History: None Present Medications: see Short Stay Collaborative assessment Medical History: Significant History (Colitis Family history of early CAD Ly mphocytic colitis Migraine Palpitations Positive GURU (antinuclear antibody) Tachycardia Varicose veins of both lower extremities with pain Vitamin D deficiency) History of Previous Operations: Relevant previous surgery/procedure and date(s) (cervical rib removal, c sectn, appendectomy, varciose veins, colonoscopy) Allergies: Allergies Allergy/AdvReac Type Severity Reaction Status Date / Time levofloxacin [Levaquin] Allergy Intermediate chest pains Verified 02/03/22 08:51 penicillin V Allergy Intermediate rash, Verified 02/03/22 08:51 vomiting Sulfa (Sulfonamide Allergy Intermediate welts, rash Verified 02/03/22 08:51 Antibiotics) trazodone AdvReac Intermediate nausea, Verified 02/03/22 08:51 dizziness Review of Systems Sugical H&P ROS: Negative: Constitution, Cardiovascular, Respiratory, Neurological, Psychiatric, Hem-Onc, Allergic/Immunologic, Gastrointestinal, Genitourinary, Musculoskeletal, Integumentary, Endocrine and Eyes/Ears/Nose/Throat Exam Surgical H&P Exam: Normal: HEENT, Normal: Heart, Normal: Lungs, Normal: Extremities, Normal: Abdomen, Normal: Skin and Normal: Neurological Plan Diagnosis/Plan: Unchanged I have reviewed the history and physical and performed a pertinent physical examination on my patient. No changes have occurred unless specified.
--- NOTE | 2022-02-09 11:39 | P.BOP_ITS ---
Brief Operative Note Date of Service: 02/09/22 Pre-op diagnosis: diarrhea Post-op diagnosis: same Procedure: see op note Surgeon: Jayla Diallo MD Anesthesia: MAC Was an Resident Physician In Radiology used for this Procedure?: No Estimated blood loss (mL): 0 Condition: stable Disposition: PACU
--- NOTE | 2022-02-09 11:39 | W.PM.OPN ---
Operative Note Operative Note Date of Service: 02/09/22 Narrative: Operative Information Procedure Description: EGD, Colonoscopy Indication: diarrhea Anesthesia: MAC FLEXIBLE TRANSORAL UPPER GASTROINTESTINAL ENDOSCOPY AND COLONOSCOPY PROCEDURE NOTE UPPER ENDOSCOPY Consent: Indications for the procedure and potential complications of bleeding, perforation, reaction to medications and missed diagnosis were discussed with the patient and informed consent was obtained. Instrument: Olympus GIF H 190 J mid size upper endoscope Monitoring: Vital signs and clinical assessment, continuous EKG monitoring, Pulse oximetry, Carbon Dioxide monitoring and blood pressure monitoring were done throughout the procedure. Procedure: The patient was placed in the left lateral decubitis position and pre-procedure medications were administered and a bite block was placed. The endoscope was inserted into the mouth and advanced under direct vision to the third part of duodenum. A careful inspection was made as the upper endoscope was withdrawn including a retroflexed examination of the proximal stomach; Findings and interventions are described below. Findings: Larynx:normal Esophagus: GE junction at 37 cm, diaphragm hiatus at 37 cm, bx taken from GEJ with some erythema and bogginess, and random esophagus in separate jars, some nodularity to esophageal mucosa noted Stomach: moderate severe diffuse erythema with bile acid refluxate noted . Biopsies were obtained. Grade 2 flap valve on retroflexed examination of the cardia. Duodenum: bulbar duodenitis, normal descending duodenum, bx taken Intervention: Biopsies as noted above COLONOSCOPY Instrument: Olympus variable stiffness pediatric scope 190L Colonoscopy Monitoring: Vital signs and clinical assessment, continuous EKG monitoring, Pulse oximetry, Carbon Dioxide monitoring and blood pressure monitoring were done throughout the procedure. Colon withdrawal time was 7 minutes. Procedure: The patient was placed in the left lateral decubitis position and pre-procedure medications were administered. After a digital rectal examination of the ano-rectum, the video colonoscope was inserted into the rectum and advanced through the colon to the cecum/TI. The colonoscope was slowly withdrawn in a retrograde panoramic fashion and the colon mucosa was carefully examined including a retroflexed view of the rectum. Findings and interventions are described below. Procedure Difficulty: easy Findings: Terminal Ileum-normal, bx taken Random colon bx taken Cecum:normal Ascending Colon: normal Transverse Colon -normal Descending Colon:normal Sigmoid Colon: normal Rectum: Retroflexion with small internal hemorrhoids, grade I Anorectum - normal Colon preparation: Philadelphia Bowel Preparation Scale Right colon; 2 Transverse colon: 2 Left colon; 3 (0 = Unprepared colon segment with mucosa not seen due to solid stool that cannot be cleared. 1 = Portion of mucosa of the colon segment seen, but other areas of the colon segment not well seen due to staining, residual stool and/or opaque liquid. 2 = Minor amount of residual staining, small fragments of stool and/or opaque liquid, but mucosa of colon segment seen well. 3 = Entire mucosa of colon segment seen well with no residual staining, small fragments of stool or opaque liquid) Impression and Post Procedure Diagnosis: Endoscopy Findings: gastritis bile acid reflux Colonoscopy Findings: internal hemorrhoids Plan: Await Pathology results Repeat Colonoscopy in 10 years or earlier if clinically indicated High fiber diet leaflet avoid straining at stool, epsom salts and sitz bath, anusol supps or cream if gastric bx neg then can consider treatment with PPI, bile acid binder, maybe Us liver to r/o portal hypertension and PHG Above findings were reviewed with the patient and relevant handouts were provided if indicated.
[2022-02-09 12:25] VITALS: BP 122/79; PULSE 63; RESP 17; TEMP 36.1; O2SAT 99
[2022-02-09 12:40] VITALS: BP 122/79; PULSE 63; RESP 17; TEMP 36.1; O2SAT 99
[2022-02-14 19:07] LABS: Intrinsic Factor Antibodies Negative (Negative)
[2022-02-14 23:26] LABS: Parietal Cell Antibody <=20.0 Unit (<=20.0)
== END 2022-02-09 13:19 | disposition home or self-care (01) ==
PROVIDERS: PCP Internal Medicine; Visit Provider Internal Medicine Gastroenterology
PROC: (CPT 45380; principal; 2022-02-09 13:00)
DX: K52.832 Lymphocytic colitis (principal); Z86.010 Personal history of colon polyps; K64.0 First degree hemorrhoids; K29.50 Unspecified chronic gastritis without bleeding; Z80.0 Family history of malignant neoplasm of digestive organs; K29.80 Duodenitis without bleeding; K21.9 Gastro-esophageal reflux disease without esophagitis; E73.9 Lactose intolerance, unspecified; K20.80 Other esophagitis without bleeding; K44.9 Diaphragmatic hernia without obstruction or gangrene; R00.0 Tachycardia, unspecified; G43.909 Migraine, unspecified, not intractable, without status migrainosus; E55.9 Vitamin D deficiency, unspecified; Z79.899 Other long term (current) drug therapy; Z88.0 Allergy status to penicillin; Z88.1 Allergy status to other antibiotic agents; Z88.2 Allergy status to sulfonamides; Z88.8 Allergy status to other drugs, medicaments and biological substances; Z90.49 Acquired absence of other specified parts of digestive tract
CPT/HCPCS: 45380; 43239; 36415; 83516; 86340; 88305; 88342

== ENCOUNTER 2022-07-14 | Outpatient (REF) | payer OTHER, SELFPAY ==
--- NOTE | ~2022-07-14 | XR_ITS ---
EXAMINATION: XR SHOULDER, RIGHT CLINICAL INFORMATION: Pain COMPARISON: Previous chest x-ray [address] from 2011. TECHNIQUE: Three views of the right shoulder. FINDINGS: Bone alignment is normal. No fracture or dislocation. Normal glenohumeral joint. Mild arthritis at the acromioclavicular joint. Soft tissues are unremarkable. There appear to be small bilateral first ribs as opposed to cervical ribs when compared with previous cervical spine CT and chest x-ray. XR/XR shoulder RT min 2V IMPRESSION: Mild arthritis at the acromioclavicular joint.
== END 2022-07-14 00:01 ==
LOC: HO.HOSX
PROVIDERS: Visit Provider Physician Assistant
DX: M75.101 Unspecified rotator cuff tear or rupture of right shoulder, not specified as traumatic (principal)
CPT/HCPCS: 20610; 73030; J1040

== ENCOUNTER 2022-11-11 08:05 | Outpatient (REF) | payer OTHER, SELFPAY ==
[2022-11-11 08:26] LABS: MANUAL DIFF FLAG NO
[2022-11-11 08:46] LABS: Basophils Absolute Auto 0.1 X10*3/uL (0.0-0.2); Basophils Percent Auto 1.3 % (0-2); Eosinophils Absolute Auto 0.3 X10*3/uL (0.0-0.4); Eosinophils Percent Auto 4.5 % (0-4); Hemoglobin 14.2 g/dl (12.0-16.0); Imm Gran Abs Auto 0.03 X10*3/uL (0.00-0.03); Imm Gran Pct Auto 0.5 % (0.0-0.4); Lymphocytes Absolute Auto 1.6 X10*3/uL (1.2-4.9); Mean Corpuscular HGB Conc 33.8 g/dl (31.0-35.0); Mean Corpuscular Hemoglobin 31.2 pg (27.0-33.0); Mean Corpuscular Volume 92.3 fL (80.0-98.0); Mean Platelet Volume 9.5 fL (9.4-12.3); Monocytes Absolute Auto 0.6 X10*3/uL (0.1-1.2); Monocytes Percent Auto 10.3 % (2-11); Neutrophils Absolute Auto 3.4 x10*3/uL (2.0-8.3); Neutrophils Percent Auto 57.4 % (45-73); Platelet Count 279 X10*3/uL (160-400); Red Blood Count 4.55 X10*6/uL (4.20-5.50); Red Cell Distribution Width 12.6 % (11.0-16.0)
[2022-11-11 09:03] LABS: Appearance Urine Cloudy; Color Urine Yellow; Glucose Urine UA Negative (Negative); Leukocyte Esterase Urine Large (3+) (Negative); Nitrite Urine Negative (Negative); UMIC TRIGGER UACC YES; Urine Blood Trace (Negative); Urine Ketones Negative (Negative); Urine Protein Negative (Neg-Trace)
[2022-11-11 09:09] LABS: Bacteria Urine None Seen (None Seen); Hyaline Casts Urine 0-2 /LPF (0-2); RBC Urine 0-2 /HPF (0-2); UACC Culture Trigger YES; WBC Urine 21-50 /HPF (0-5)
[2022-11-11 09:37] LABS: Erythrocyte Sedimentation Rate 3 MM/HR (0-20)
[2022-11-11 09:48] LABS: Alanine Aminotransferase 25 U/L (0-31); Albumin Level 4.1 g/dL (3.5-5.0); Alkaline Phosphatase 34 U/L (39-117); Anion Gap 11 (12-20); Aspartate Amino Transferase 18 U/L (5-31); Bilirubin Total 0.8 mg/dL (0.0-1.0); Blood Urea Nitrogen 12 mg/dL (9-16); C Reactive Protein 0.43 mg/dL (< or = 0.50); Calcium 9.2 mg/dL (8.4-10.2); Carbon Dioxide 28 mmol/L (22-29); Chloride 104 mmol/L (96-108); Cholesterol 186 mg/dL; Estimated Glomerular Filt Rate > 60; Glucose Fasting 97 mg/dL (60-99); HDL Cholesterol 41 mg/dL; LDL Cholesterol Calculated 107 mg/dl; Potassium 4.5 mmol/L (3.3-5.1); Sodium 138 mmol/L (135-145); Total Protein 6.7 g/dL (6.5-8.0); Triglycerides 191 mg/dL
[2022-11-11 09:55] LABS: Folate 11.2 ng/mL (> or = 4.0); TSH reflex Free T4 1.39 uIU/mL (0.32-4.0); Vitamin B12 1376 pg/mL (200-900); Vitamin D 25-OH Total 16.8 ng/mL (>30)
[2022-11-16 15:58] LABS: Anti Nuclear Antibody Screen POSITIVE (NEGATIVE)
== END 2022-11-11 08:06 | disposition home or self-care (01) ==
LOC: HO.LAB 08:05
PROVIDERS: PCP Internal Medicine; Visit Provider Internal Medicine
DX: Z00.00 Encounter for general adult medical examination without abnormal findings (principal); K52.832 Lymphocytic colitis; E55.9 Vitamin D deficiency, unspecified; E78.00 Pure hypercholesterolemia, unspecified; R82.90 Unspecified abnormal findings in urine
CPT/HCPCS: 36415; 80053; 80061; 81001; 81003; 82306; 82607; 82746; 84443; 85025; 85652; 86038; 86039; 86140; 87086

== ENCOUNTER 2023-01-16 10:36 | Outpatient (REF) | payer OTHER, SELFPAY ==
--- NOTE | ~2023-01-16 | MM_ITS ---
EXAMINATION: BONE DENSITOMETRY CLINICAL INDICATION: Asymptomatic menopausal state. COMPARISON: None (current study represents initial baseline exam). TECHNIQUE: Using a [employer] DXA System (software version: 13.1) manufactured by [employer], dual-energy x-ray absorptiometry was performed of the lumbar spine and left hip. The images are of good technical quality. Summary results are attached. FINDINGS: AP SPINE L1-L4: BMD 1.257 g/cm2, Z-score 2.0, T-score 0.6, normal. LEFT FEMUR, NECK: BMD 0.915 g/cm2, Z-score 0.5, T-score -0.9, normal. LEFT FEMUR, TOTAL: BMD 0.963 g/cm2, Z-score 0.7, T-score -0.4, normal. IDENTIFIED RISK FACTORS: Low calcium intake. Early menopause, secondary osteoporosis. HISTORY OF FRACTURE: None listed. MEDICATIONS: Vitamin D. MM/XR DEXA axial skeleton IMPRESSION: 1. DIAGNOSIS: Normal bone density based on the lowest T-score value of -0.9 in the femoral neck applying World Health Organization criteria. 2. 10-YEAR FRACTURE RISK PREDICTION, FRAX: According to the guidelines, FRAX calculation should only be performed on patients in the osteopenia bone density category. Therefore, FRAX was not performed on this patient. 3. Treatment Recommendations: NOF guidelines recommend consideration for treatment in postmenopausal women and men age 50 and older presenting with the following: -A hip or vertebral (clinical or morphometric) fracture. -T-score less than or equal to -2.5 at the femoral neck or spine after appropriate evaluation to exclude secondary causes. -Low bone mass at the hip or spine and a 10-year fracture probability by FRAX of greater than or equal to 3% for hip fracture or greater than or equal to 20% for major osteoporotic fracture based on the [place] adapted WHO algorithm. 4. Other Recommendations: All treatment decisions require clinical judgment and consideration of individual patient factors, including patient preferences, comorbidities, previous drug use, risk factors not captured in the FRAX model (e.g. frailty, falls, vitamin D deficiency, increased bone turnover, interval significant decline in bone density) and possible under or overestimation of fracture risk by FRAX. FUTURE SCAN RECOMMENDATION: People with diagnosed cases of osteoporosis or at high risk for fracture should have regular bone mineral density tests. For patients eligible for Medicare, routine testing is allowed once every 2 years. The testing frequency can be increased to one year for patients who have rapidly progressing disease, those who are receiving or discontinuing medical therapy to restore bone mass, or have additional risk factors.
--- NOTE | ~2023-01-16 | MM_ITS ---
EXAMINATION: MM SCREENING DIGITAL BREAST TOMOSYNTHESIS, BILATERAL CLINICAL INFORMATION: Screening. Asymptomatic. The lifetime risk of breast cancer based on the Tyrer-Cuzick Model is 5%. COMPARISON: Mammography: 10/25/2021, 11/19/2018, 12/26/2016, 08/26/2015 TECHNIQUE: Digital breast tomosynthesis is performed in both the craniocaudal and mediolateral oblique views along with computer-aided detection (CAD). Synthesized 2D images are generated from the tomosynthesis. FINDINGS: There are scattered areas of fibroglandular density (ACR BI-RADS breast composition Category b). There are no significant masses, abnormal calcifications, or other abnormalities. Parenchymal pattern is similar to prior studies. There is no developing density or architectural abnormality. The axilla and skin contours are unremarkable. No significant changes. MM/MM tomosynthesis screening BI IMPRESSION: No mammographic evidence of malignancy. ASSESSMENT: BI-RADS 1: Negative RECOMMENDATION: Routine annual mammography screening. This patient's information was entered into a reminder system with a target due date for their next mammogram.
== END 2023-01-16 10:37 | disposition home or self-care (01) ==
LOC: HO.MAMMO 10:36
PROVIDERS: PCP Internal Medicine; Visit Provider Internal Medicine
DX: Z12.31 Encounter for screening mammogram for malignant neoplasm of breast (principal); Z13.820 Encounter for screening for osteoporosis; Z78.0 Asymptomatic menopausal state
CPT/HCPCS: 77063; 77067; 77080

== ENCOUNTER 2023-01-18 13:43 | Outpatient (REF) | payer OTHER, SELFPAY ==
[2023-01-24 08:04] LABS: HPV mRNA E6/E7 rflx Not Detected (Not Detected)
== END 2023-01-18 13:44 | disposition home or self-care (01) ==
LOC: HO.LNP 13:43
PROVIDERS: PCP Internal Medicine; Visit Provider Obstetrics & Gynecology
DX: Z12.4 Encounter for screening for malignant neoplasm of cervix (principal); Z11.51 Encounter for screening for human papillomavirus (HPV); N95.0 Postmenopausal bleeding
CPT/HCPCS: 87624; 88142

== ENCOUNTER 2023-02-01 11:12 | Outpatient (REF) | payer OTHER, SELFPAY ==
--- NOTE | ~2023-02-01 | US_ITS ---
EXAMINATION: US PELVIS AND TRANSVAGINAL CLINICAL INFORMATION: Postmenopausal bleeding. COMPARISON: Pelvic ultrasound 12/21/2011. TECHNIQUE: Ultrasound of the pelvis is performed using both transabdominal and transvaginal transducers along with Doppler. Transvaginal imaging is performed due to inadequate visualization transabdominally. FINDINGS: UTERUS: The uterus is anteverted is heterogeneous in echotexture and mildly enlarged measuring 12.0 x 5.4 x 7.2 cm. The double wall endometrial thickness is 10 mm. Three uterine fibroids are seen measuring 3.5 x 2.9 x 2.8 cm, 1.7 x 1.4 x 1.9 cm and 1.3 x 1.5 x 1.2 cm. The largest fibroid is at the fundus. Area of calcification seen in the uterus measuring 1.3 x 0.7 x 1.2 cm is likely related to a fibroid as well. A complex cyst is seen in the cervix measuring 1 cm. ADNEXA: Both ovaries are visualized. There is normal color flow to the adnexa. There is no ovarian torsion. There is trace pelvic fluid. Right ovary measures 3.0 x 1.5 x 1.7 cm for a volume of 4 mL. Left ovary measures 1.8 x 2.2 x 1.7 cm for a volume of 3.5 mL. US/US pelvic and transvaginal IMPRESSION: Multiple uterine fibroids.
== END 2023-02-01 11:13 | disposition home or self-care (01) ==
LOC: HO.US 11:12
PROVIDERS: PCP Internal Medicine; Visit Provider Obstetrics & Gynecology
DX: N95.0 Postmenopausal bleeding (principal)
CPT/HCPCS: 76830; 76856

== ENCOUNTER 2023-02-19 15:14 | Outpatient (REF) | payer OTHER, SELFPAY | END 2023-02-19 15:15 | disposition home or self-care (01) | LOC: HO.LNP 15:14 | PROVIDERS: PCP Internal Medicine; Visit Provider Obstetrics & Gynecology | DX: N95.0 Postmenopausal bleeding (principal) | CPT/HCPCS: 58100; 88305 ==

== ENCOUNTER 2023-03-06 08:04 | Outpatient (AMB) | payer OTHER, SELFPAY ==
--- NOTE | 2023-03-06 08:05 | A.OFFVIS_ITS ---
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 Information Interpreted: non-clinical & clinical Accompanied by: Self / Same As Patient Allergies levofloxacin [Levaquin] Allergy (Intermediate, Verified 03/06/23 08:09) chest pains penicillin V Allergy (Intermediate, Verified 03/06/23 08:09) rash, vomiting Sulfa (Sulfonamide Antibiotics) Allergy (Intermediate, Verified 03/06/23 08:09) welts, rash topiramate Adverse Reaction (Intermediate, Verified 03/06/23 08:09) weight loss, depression trazodone Adverse Reaction (Intermediate, Verified 03/06/23 08:09) nausea, dizziness Post menopausal: Yes HPI HPI Comments History of Present Illness Details Presenting after endometrial ablation for follow-up, the patient is doing well with no complaints. The pathology showed the following: Endometrium, biopsy:? Scant superficial strips of endocervical and squamous epithelium within normal limits; blood and mucoinflammatory material; definitive endometrial sampling not identified. [facility] Medical History Colitis COVID-19 vaccine series completed Family history of early CAD History of COVID-19 Lymphocytic colitis Migraine Palpitations Positive GURU (antinuclear antibody) Tachycardia Varicose veins of both lower extremities with pain Vitamin D deficiency Surgical History H/O section History of colonoscopy History of dilatation and curettage History of esophagogastroduodenoscopy (EGD) History of tubal ligation Hx of cholecystectomy Hx of resection of rib Status post laser ablation of incompetent vein (~03/2018) Family History Father Cancer of pancreas Mother CVD (cardiovascular disease) Brother CVD (cardiovascular disease) Paternal Uncle Colon cancer Social History Housing: House Alcohol intake: former Patient Tobacco Use Status: Never used Tobacco e-Cigarette/Vaping Use: Never Used Second Hand Smoke Exposure: Yes service: No Current occupational status: employed Current occupation: health care/ right hand dominant Cognitive needs: No Hearing needs: No Vision needs: Yes (Glasses) Review of Systems Const All systems reviewed & are unremarkable except as noted in HPI and below Reports as per HPI and Reports no additional complaints GI Reports no additional complaints Reports no additional complaints Assessment & Plan Assessment & Plan (1) Postmenopausal bleeding: Comment: History of endometrial ablation in 06 Code(s): N95.0 - Postmenopausal bleeding Plan: Discussed with the patient the results of the endometrial biopsy pathology with no evidence of endometrial tissue, therefore discussed with the patient that endometrial pathology including endometrial hyperplasia and/or carcinoma has not been ruled out. Will refer to [facility] for further management. All questions answered, the patient verbalized understanding. Instructed the patient to call our office back in case a referral appointment is not scheduled, missed or canceled so that we will assist on rescheduling another appointment, the patient verbalized understanding agreed with the plan. Coding Level of Care Code Est Pt Level 3 (82234) Diagnoses Postmenopausal bleeding N95.0
[2023-03-06 08:08] VITALS: BP 110/60; BMI 23.0
== END 2023-03-06 08:59 | disposition home or self-care (01) ==
LOC: HO.HWS 08:04
PROVIDERS: PCP Internal Medicine; Visit Provider Obstetrics & Gynecology
DX: N95.0 Postmenopausal bleeding (principal)
CPT/HCPCS: 99213

== ENCOUNTER → 2023-03-06 08:04 | Outpatient (BNVA) | payer OTHER, SELFPAY | PROVIDERS: PCP Internal Medicine; Visit Provider Obstetrics & Gynecology ==

== ENCOUNTER 2023-05-21 17:21 | Outpatient (AMB) | payer OTHER, SELFPAY ==
[2023-05-21 17:22] VITALS: BP 112/72; PULSE 70; O2SAT 98; BMI 21.7
--- NOTE | 2023-05-21 17:22 | MHC.PC.OV ---
Vital Signs 05/21/23 17:22 Height 5 ft 3 in Weight 122 lb 6 oz BMI 21.7 BP 112/72 Blood Pressure Location Lt brachial Position Sitting Pulse 70 Pulse Source Pulse Oximeter Pulse Oximetry (%) 98 Oxygen Delivery Method Room Air Intake Visit Reasons: annual PE Manager Of Development Required: No Accompanied by: Self / Same As Patient Allergies levofloxacin [Levaquin] Allergy (Intermediate, Verified 05/21/23 17:50) chest pains penicillin V Allergy (Intermediate, Verified 05/21/23 17:50) rash, vomiting Sulfa (Sulfonamide Antibiotics) Allergy (Intermediate, Verified 05/21/23 17:50) welts, rash topiramate Adverse Reaction (Intermediate, Verified 05/21/23 17:50) weight loss, depression trazodone Adverse Reaction (Intermediate, Verified 05/21/23 17:50) nausea, dizziness Medication List - Last Reconciled 05/21/23 by Brice Gallagher MD propranolol ER 80 mg PO BEDTIME sumatriptan succinate take 1 tab at onset of headache; if no relief may repeat 1 tab after at least 2 hrs; max = 4 tabs/24 hr PO 30 days topiramate 25 mg PO DAILY zolpidem 10 mg PO BEDTIME PRN 3 days Tobacco use date assessed: 05/21/23 Dental Screening Dental Screen Date: 05/21/23 Did you have a dental visit in the last 12 months?: No Did you have a dental problem in the last 6 months where you did not have access to dental care?: No Was dental information given to patient?: No HPI annual PE HPI Details Patient comes in today for her annual physical examination States that she just had a hysteroscopy, D & C and polypectomy done at [facility] last week and her lower abdomen still feels sore and uncomfortable She originally went to see her wooden barrel mechanic for postmenopausal bleeding and was found to have some uterine polyps and a thickened endometrium on workup and was then recommended to have a hysteroscopy done She has a follow up appointment with her wooden barrel mechanic next month to discuss her findings and further treatment plans States that she feels okay otherwise She denies any headaches or dizziness - states that her migraine headaches have been well-controlled lately and she only gets a few migraine headaches on average every month now Denies any chest pains, no shortness of breath No nausea /vomiting; still has on and off abdominal pain and cramping with diarrhea/ loose stools due to her colitis flare-ups She denies any acute urinary symptoms She had her mammogram last done in December 2022 and repeat colonoscopy last year (January 2022) [facility] Medical History COVID-19 vaccine series completed History of COVID-19 Family history of early CAD Positive GURU (antinuclear antibody) Vitamin D deficiency Varicose veins of both lower extremities with pain Lymphocytic colitis Palpitations Migraine Colitis Tachycardia Surgical History (Updated 05/22/23 @ 04:30 by Brice Gallagher MD) History of dilatation and curettage History of esophagogastroduodenoscopy (EGD) History of colonoscopy Status post laser ablation of incompetent vein (~03/2018) History of tubal ligation Hx of cholecystectomy H/O section Hx of resection of rib Family History Father Cancer of pancreas Mother CVD (cardiovascular disease) Brother CVD (cardiovascular disease) Paternal Uncle Colon cancer Social History Housing: House Alcohol intake: former Patient Tobacco Use Status: Never used Tobacco e-Cigarette/Vaping Use: Never Used Second Hand Smoke Exposure: Yes service: No Current occupational status: employed Current occupation: health care/ right hand dominant Cognitive needs: No Hearing needs: No Vision needs: Yes (Glasses) Questionnaire PHQ-9 Over the last 2 weeks, how often have you been bothered by any of the following problems? 1. Little interest or pleasure in doing things: not at all 2. Feeling down, depressed, or hopeless: not at all 3. Trouble falling or staying asleep, or sleeping too much: not at all 4. Feeling tired or having little energy: not at all 5. Poor appetite or overeating: not at all 6. Feeling bad about yourself - or that you are a failure or have let yourself or your family down: not at all 7. Trouble concentrating on things, such as reading the newspaper or watching television: not at all 8. Moving or speaking so slowly that other people could have noticed. Or the opposite - being so fidgety or restless that you have been moving around a lot more than usual: not at all 9. Thoughts that you would be better off or of hurting yourself in some way: not at all Total score: 0 Depression Screening Interpretation: Negative 28711 - PHQ-9 Billing: Yes Source: Developed by Drs. Kamari Payton, Clara John, Matthieu Trujillo and colleagues, with an educational malina from [employer]. Thrive Questionnaire Date Thrive assessed: 05/21/23 I am a: Patient What is your living situation today?: I have a steady place to live Within the past 12 months, did the food you bought not last and you didn't have the money to get more?: Never true Within the past 12 months, did you worry whether your food would run out before you got money to buy more?: Never true Do you have trouble paying for medicines?: No Do you have trouble getting transportation to medical appointments?: No Do you have trouble paying your heating and electricity bill?: No Do you have trouble taking care of your child, family member or friend?: No Do you have trouble with day-to-day activities such as bathing, preparing meals, shopping, managing finances, etc.?: No Are you currently unemployed and looking for a job?: No Are you interested in more education?: No Please select the resources that you would like help with: None Currently or been in a relationship where the following occur: no concerns reported AUDIT C Alcohol Use Questionnaire (AUDIT-C) 1. How often do you have a drink containing alcohol?: Never 3. How often do you have six or more drinks on one occasion?: Never Total Score: 0 Score Reviewed/Action Taken: Yes AMANDA-7 AMB Questionnaire AMANDA-7 Date AMANDA - 7 assessed: 05/21/23 Feeling nervous, anxious, or on edge: 0 = Not at all Not being able to stop or control worryin = Not at all Worrying too much about different things: 0 = Not at all Trouble relaxin = Not at all Being so restless that it is hard to sit still: 0 = Not at all Becoming easily annoyed or irritable: 0 = Not at all Feeling afraid as if something awful might happen: 0 = Not at all Total AMANDA-7 score (0-4 normal; 5-9 mild; 10-14 moderate; 15-21 severe): 0 Source: Developed by Drs. Kamari Payton, Clara John, Matthieu Trujillo and colleagues, with an educational malina from [employer]. Review of Systems Const Denies chills, Reports fatigue, Denies fever(s), Denies headache(s) and Denies malaise Eyes Denies blurry vision, Denies change in vision, Denies irritation and Denies itchy eyes ENT Denies dysphagia, Denies dizziness, Denies otalgia, Denies headache(s), Denies nasal congestion, Denies neck pain, Denies odynophagia, Denies sinus pain and Denies sore throat Card Denies chest pain, Denies rapid heart rate, Denies irregular heart rhythm, Denies palpitations and Denies dyspnea Resp Denies chest congestion, Denies cough, Denies dyspnea and Denies wheezing GI Reports abdominal pain (on and off cramping pain; lower abdomen currently feels sore), Denies bloating, Denies hematochezia, Denies constipation, Denies dysphagia, Denies heartburn, Reports diarrhea (on and off), Denies nausea, Denies odynophagia and Denies vomiting Denies hematuria, Denies urinary frequency, Denies dysuria, Denies urinary incontinence and Denies urinary urgency Musc Denies back pain, Denies arthralgias, Denies joint swelling, Denies muscle weakness and Denies neck pain Skin/Breast Denies breast pain, Denies breast mass, Denies change in pigmentation, Denies lesions, Denies rash and Denies unusual bruising Neuro Denies dizziness, Denies headache(s) and Denies paresthesias Psych Denies anxiety and Denies depression Endo Reports fatigue and Denies palpitations Babatunde/Lymph Denies easy bruising Aller/Immun Denies itchy eyes and Denies wheezing Physical exam (Primary Care) Vital Signs: Last Vital Signs Pulse 70 05/21/23 17:22 BP 112/72 05/21/23 17:22 Pulse Ox 98 05/21/23 17:22 Oxygen Delivery Method Room Air 05/21/23 17:22 BMI result Body Mass Index 21.7 Tobacco/Smoking Status: Tobacco use Status Tobacco use date assessed 05/21/23 05/21/23 17:32 Patient Tobacco Use Status Never used Tobacco 05/21/23 17:32 e-Cigarette/Vaping Use Never Used 05/21/23 17:32 PHQ-9: PHQ-9 Score PHQ-9: Total score 0 05/22/23 02:55 Depression Screening Interpretation: Negative Thrive Assessment: Date of Thrive Assessment Date Thrive assessed 05/21/23 05/21/23 17:32 Currently or been in a relationship where the following occur: no concerns reported Const General: no acute distress, alert and awake Orientation/consciousness: patient oriented x3 HENMT Head: Yes normocephalic and Yes atraumatic Ears: external ears normal, TM's normal bilaterally and EAC's normal General nose exam: No nasal discharge present Face and sinus: Yes normal facial exam and Yes sinuses nontender Teeth and gingiva: dentition normal Throat: Yes posterior oropharynx normal and Yes tonsils normal (no TP congestion) Eyes Eyelids: Yes eyelids normal Conjunctivae: conjunctivae normal Pupils: Equal, round and reactive pupils present EOM: EOMs intact bilaterally Neck Neck: Yes no lymphadenopathy and Yes supple Thyroid: Thyroid normal Resp Auscultation: clear to auscultation bilaterally, no rales and no wheezes Cardio Rate: regular rate Rhythm: regular rhythm Heart sounds: no murmurs GI Palpation (GI): Soft to palpation, Tenderness to palpation present (GI) (mild soreness over lower abdomen, including hypogastric/suprapubic areas), no guarding, No hepatosplenomegaly present and No Rebound tenderness present Auscultation: normal bowel sounds General: Yes no CVA tenderness Back/Spine/Pelvis Back: no CVA tenderness Thoracic/Lumbar Spine: thoracic and lumbar spine normal to inspection Skin Lesions: no lesions Rashes: no rashes Neuro General: patient oriented x3, moves all extremities, no focal motor deficits and CN's II-XI intact bilaterally Cranial nerves: Yes Equal, round and reactive pupils present Cognition (Neuro): normal cognition Gait exam (Neuro): Normal gait present Extrem General: Yes no clubbing, cyanosis or edema Assessment and Plan Assessment & Plan (1) Annual physical exam: Code(s): Z00.00 - Encounter for general adult medical examination without abnormal findings Plan: Patient had her annual labs done earlier this year in October 2022 - labs were within normal limits She is up-to-date with her annual mammogram (done December 2022) and repeat colonoscopy (done January 2022) Recently had hysteroscopy with D&C and polypectomy done last week; has appointment with gynecology next month to discuss her test results and treatment plans (2) Lymphocytic colitis: Code(s): K52.832 - Lymphocytic colitis Plan: Biopsy revealed lymphocytic colitis pattern on screening colonoscopy done in January 2022 Was on Budesonide ER 3 mg QD in the past but this was discontinued and she was tried instead on Mesalamine ER, which her insurance would not cover (has to pay a high co-pay for the Rx) Is currently only taking Imodium PRN, which does not really help much Follow up with GI (Dr. Diallo) as scheduled (3) Migraine: Code(s): G43.909 - Migraine, unspecified, not intractable, without status migrainosus Qualifiers: Migraine type: unspecified Status migrainosus presence: without status migrainosus Intractability: not intractable Qualified Code(s): G43.909 - Migraine, unspecified, not intractable, without status migrainosus Plan: Reinforced avoidance of migraine triggers Headaches were controlled previously when she was on prophylactic Tx with Topiramate 25 mg Q HS earlier last year but Rx was stopped as she was losing too much weight and she was feeling depressed and experiencing some brain fog back then Was then on Propranolol ER and Amitriptyline 25 mg Q HS for a while but gained a lot of weight on Amitriptyline and asked to switch back to Topiramate Currently appears to be doing okay on a combination of Topiramate 25 mg Q HS and Propranolol ER 80 mg Q HS although she is taking Propranolol ER more for her tachycardia/palpiatations than for migraine headaches Continue Sumatriptan 50 mg PRN for headaches and Ondansetron 4 mg TID PRN for nausea Follow up with neurology as scheduled (4) Palpitations: Code(s): R00.2 - Palpitations Plan: Has been seen by cardiology and evaluated for this 1 to 2 years ago; echocardiogram and Holter monitor done have all come back normal Continue Propranolol ER 80 mg QD Follow up with cardiology as scheduled (5) Varicose veins of both lower extremities with pain: Code(s): I83.813 - Varicose veins of bilateral lower extremities with pain Plan: S/P EVLT by Dr. Jonathan Meeks a few years ago with (+) relief/improvement of symptoms but patient reports that she has been experiencing a gradual recurrence of her symptoms recently Follow up with vascular surgery as scheduled or as needed (6) Vitamin D deficiency: Code(s): E55.9 - Vitamin D deficiency, unspecified Plan: Continue Vitamin D3 2000 units QD (7) B12 deficiency: Code(s): E53.8 - Deficiency of other specified B group vitamins Plan: Her Vitamin B12 level was over 1000 when last checked and she was advised to cut back on her Vitamin B12 supplements to 1000 mcg QD (was previously on Vitamin B12 3000 mcg QD) Will recheck Vitamin B12 level in 6 months for follow up (8) Positive GURU (antinuclear antibody): Code(s): R76.8 - Other specified abnormal immunological findings in serum Plan: (+) Hx of positive GURU a few years ago - repeat testing done a few months ago came back negative but her repeat test in October 2022 is positive again Advised that her positive results a few years ago and more recently may be false positive results triggered in part by her colitis Patient currently has no evidence or findings of inflammatory joint disease although she reports experiencing more frequent on and off joint pains lately Will recheck these and include a double-stranded DNA test for confirmation when patient goes for her repeat labs in 6 months (9) Primary insomnia: Code(s): F51.01 - Primary insomnia Plan: Sleep hygiene reinforced Continue Zolpidem 10 mg Q HS PRN Plan Follow up in 6 months Orders: Orders Complete Blood Count Auto Diff 6 Months I10 - Essential (primary) hypertension Comprehensive [place]. Panel Fast 6 Months E78.00 - Pure hypercholesterolemia, unspecified Lipid Panel 6 Months E78.00 - Pure hypercholesterolemia, unspecified TSH reflex Free T4 6 Months E78.00 - Pure hypercholesterolemia, unspecified UA CC w/rflx Micro + Cult 6 Months R30.0 - Dysuria Vitamin D 25-OH Total 6 Months E55.9 - Vitamin D deficiency, unspecified Erythrocyte Sedimentation Rate 6 Months R76.8 - Other specified abnormal immunological findings in serum Rheumatoid Factor 6 Months R76.8 - Other specified abnormal immunological findings in serum C Reactive Protein 6 Months R76.8 - Other specified abnormal immunological findings in serum GURU Reflex Titer and Pattern 6 Months R76.8 - Other specified abnormal immunological findings in serum Anti DNA DS Antibody 6 Months R76.8 - Other specified abnormal immunological findings in serum Coding Level of Care Code Est Pt Prev Care 40-64y([id number]) Diagnoses Annual physical exam Z00.00 Lymphocytic colitis K52.832 Migraine without status migrainosus, not intractable, unspecified migraine type G43.909 Migraine type: unspecified Status migrainosus presence: without status migrainosus Intractability: not intractable Palpitations R00.2 Varicose veins of both lower extremities with pain I83.813 Vitamin D deficiency E55.9 B12 deficiency E53.8 Positive GURU (antinuclear antibody) R76.8 Primary insomnia F51.01
== END 2023-05-21 18:08 | disposition home or self-care (01) ==
PROVIDERS: Visit Provider Internal Medicine
DX: Z00.00 Encounter for general adult medical examination without abnormal findings (principal); G43.909 Migraine, unspecified, not intractable, without status migrainosus; E55.9 Vitamin D deficiency, unspecified; K52.832 Lymphocytic colitis; R00.2 Palpitations; I83.813 Varicose veins of bilateral lower extremities with pain; E53.8 Deficiency of other specified B group vitamins; R76.8 Other specified abnormal immunological findings in serum; F51.01 Primary insomnia
CPT/HCPCS: 99396

== ENCOUNTER 2023-11-12 15:14 | Outpatient (REF) | payer OTHER, SELFPAY ==
[2023-11-12 15:35] LABS: MANUAL DIFF FLAG NO
[2023-11-12 15:54] LABS: Basophils Percent Auto 0.6 % (0-2); Eosinophils Absolute Auto 0.2 X10*3/uL (0.0-0.4); Eosinophils Percent Auto 2.6 % (0-4); Hematocrit 40.6 % (37.0-47.0); Hemoglobin 13.5 g/dl (12.0-16.0); Imm Gran Abs Auto 0.03 X10*3/uL (0.00-0.03); Imm Gran Pct Auto 0.5 % (0.0-0.4); Lymphocytes Absolute Auto 1.5 X10*3/uL (1.2-4.9); Mean Corpuscular HGB Conc 33.3 g/dl (31.0-35.0); Mean Corpuscular Hemoglobin 30.9 pg (27.0-33.0); Mean Corpuscular Volume 92.9 fL (80.0-98.0); Monocytes Absolute Auto 0.5 X10*3/uL (0.1-1.2); Monocytes Percent Auto 7.3 % (2-11); Neutrophils Absolute Auto 4.2 x10*3/uL (2.0-8.3); Platelet Count 262 X10*3/uL (160-400); Red Blood Count 4.37 X10*6/uL (4.20-5.50); Red Cell Distribution Width 13.1 % (11.0-16.0); White Blood Count 6.4 X10*3/uL (4.8-10.8)
[2023-11-12 16:36] LABS: Erythrocyte Sedimentation Rate 2 MM/HR (0-20)
[2023-11-12 16:50] LABS: Alanine Aminotransferase 12 U/L (0-31); Albumin Level 4.2 g/dL (3.5-5.0); Alkaline Phosphatase 35 U/L (39-117); Anion Gap 11 (12-20); Aspartate Amino Transferase 13 U/L (5-31); Bilirubin Total 0.8 mg/dL (0.0-1.0); Blood Urea Nitrogen 17 mg/dL (9-16); C Reactive Protein 0.25 mg/dL (< or = 0.50); Carbon Dioxide 24 mmol/L (22-29); Chloride 110 mmol/L (96-108); Cholesterol 174 mg/dL (<200); Estimated Glomerular Filt Rate > 60; Glucose Fasting 89 mg/dL (60-99); HDL Cholesterol 44 mg/dL (>40); LDL Cholesterol Calculated 113 mg/dL (<100); Potassium 3.4 mmol/L (3.3-5.1); Rheumatoid Factor < 13.0 IU/mL (<15.0); Sodium 142 mmol/L (135-145); Triglycerides 85 mg/dL (<150)
[2023-11-12 17:07] LABS: Vitamin D 25-OH Total 23.9 ng/mL (>30)
[2023-11-12 17:15] LABS: Appearance Urine Cloudy; Color Urine Yellow; Glucose Urine UA Negative (Negative); Leukocyte Esterase Urine Moderate (2+) (Negative); Nitrite Urine Negative (Negative); PH 5.5 (5.0-9.0); Specific Gravity - Urine 1.025 (1.005-1.025); UMIC TRIGGER UACC YES; Urine Blood Negative (Negative); Urine Ketones Negative (Negative); Urine Protein Negative (Neg-Trace)
[2023-11-12 17:20] LABS: Vitamin B12 614 pg/mL (200-900)
[2023-11-12 17:37] LABS: Bacteria Urine 1+ (None Seen); Hyaline Casts Urine 0-2 /LPF (0-2); RBC Urine 0-2 /HPF (0-2); UACC Culture Trigger YES
[2023-11-13 20:54] LABS: Anti DNA DS Antibody 1 IU/mL
[2023-11-17 21:18] LABS: Anti Nuclear Antibody Screen POSITIVE (NEGATIVE)
== END 2023-11-12 15:15 | disposition home or self-care (01) ==
LOC: HO.LAB 15:14
PROVIDERS: PCP Internal Medicine; Visit Provider Internal Medicine
DX: E55.9 Vitamin D deficiency, unspecified (principal); E78.00 Pure hypercholesterolemia, unspecified; E53.8 Deficiency of other specified B group vitamins; R76.8 Other specified abnormal immunological findings in serum; I10 Essential (primary) hypertension; R30.0 Dysuria
CPT/HCPCS: 36415; 80053; 80061; 81001; 82306; 82607; 82746; 84443; 85025; 85652; 86038; 86039; 86140; 86225; 86431; 87086

== ENCOUNTER 2023-12-17 14:30 | Outpatient (AMB) | payer OTHER, SELFPAY ==
--- NOTE | 2023-12-17 14:40 | MHC.PC.OV ---
Vital Signs 12/17/23 14:42 Height 5 ft 3 in Weight 109 lb 6 oz BMI 19.4 BP 102/60 Blood Pressure Location Lt brachial Position Sitting Pulse 70 Pulse Source Pulse Oximeter Pulse Oximetry (%) 99 Oxygen Delivery Method Room Air Intake Visit Reasons: 6 month f/u Intake Note: Patient is here to follow up on Migraines, Lymphatic colitis, Insomnia. Concern about unplanned weight loss. Submarine Diver Required: No Commissary Assistant: Not Required per policy Accompanied by: Self / Same As Patient Allergies nirmatrelvir [From Paxlovid] Allergy (Severe, Verified 06/17/24 11:38) Diarrhea ritonavir [From Paxlovid] Allergy (Severe, Verified 06/17/24 11:38) Diarrhea levofloxacin [Levaquin] Allergy (Intermediate, Verified 06/17/24 11:38) chest pains penicillin V Allergy (Intermediate, Verified 06/17/24 11:38) rash, vomiting Sulfa (Sulfonamide Antibiotics) Allergy (Intermediate, Verified 06/17/24 11:38) welts, rash topiramate Adverse Reaction (Intermediate, Verified 06/17/24 11:38) weight loss, depression trazodone Adverse Reaction (Intermediate, Verified 06/17/24 11:38) nausea, dizziness Medication List - Last Reconciled 06/17/24 by Brice Gallagher MD letrozole 2.5 mg PO DAILY loperamide 2 mg PO Q4H PRN metoclopramide HCl 10 mg PO QIDACHS propranolol ER 80 mg PO BEDTIME sumatriptan succinate take 1 tab at onset of headache; if no relief may repeat 1 tab after at least 2 hrs; max = 4 tabs/24 hr PO 30 days topiramate 25 mg PO DAILY zolpidem 10 mg PO BEDTIME PRN 30 days Tobacco use date assessed: 12/17/23 Dental Screening Dental Screen Date: 12/17/23 Did you have a dental visit in the last 12 months?: No Did you have a dental problem in the last 6 months where you did not have access to dental care?: No Was dental information given to patient?: No HPI 6 month f/u HPI Details Patient comes in today for her follow up visit States that she feels okay She denies any headaches or dizziness Denies any chest pains, no SOB No nausea/vomiting, no abdominal pain No change in bowel habits noted Needs a couple of her Rx refilled She had her follow up labs done last month - to discuss her results [facility] Medical History (Updated 06/17/24 @ 12:21 by Brice Gallagher MD) Granulosa cell tumor of ovary COVID-19 vaccine series completed History of COVID-19 Family history of early CAD Positive GURU (antinuclear antibody) Vitamin D deficiency Varicose veins of both lower extremities with pain Lymphocytic colitis Palpitations Migraine Colitis Tachycardia Surgical History History of total hysterectomy History of dilatation and curettage History of esophagogastroduodenoscopy (EGD) History of colonoscopy Status post laser ablation of incompetent vein (~03/2018) History of tubal ligation Hx of cholecystectomy H/O section Hx of resection of rib Family History Father Cancer of pancreas Mother CVD (cardiovascular disease) Brother CVD (cardiovascular disease) Paternal Uncle Colon cancer Social History Housing: House Alcohol intake: former Patient Tobacco Use Status: Never used Tobacco e-Cigarette/Vaping Use: Never Used Second Hand Smoke Exposure: No service: No Current occupational status: employed Current occupation: health care/ right hand dominant Cognitive needs: No Hearing needs: No Vision needs: Yes (Glasses) Questionnaire PHQ-9 Over the last 2 weeks, how often have you been bothered by any of the following problems? 1. Little interest or pleasure in doing things: not at all 2. Feeling down, depressed, or hopeless: not at all 3. Trouble falling or staying asleep, or sleeping too much: not at all 4. Feeling tired or having little energy: not at all 5. Poor appetite or overeating: not at all 6. Feeling bad about yourself - or that you are a failure or have let yourself or your family down: not at all 7. Trouble concentrating on things, such as reading the newspaper or watching television: not at all 8. Moving or speaking so slowly that other people could have noticed. Or the opposite - being so fidgety or restless that you have been moving around a lot more than usual: not at all 9. Thoughts that you would be better off or of hurting yourself in some way: not at all Total score: 0 Depression Screening Interpretation: Negative Depression Screening Done: Yes 59308 - PHQ-9 Billing: Yes Source: Developed by Drs. Kamari Payton, Clara John, Matthieu Trujillo and colleagues, with an educational malina from [employer]. Thrive Questionnaire Date Thrive assessed: 12/17/23 I am a: Patient What is your living situation today?: I have a steady place to live Within the past 12 months, did the food you bought not last and you didn't have the money to get more?: Never true Within the past 12 months, did you worry whether your food would run out before you got money to buy more?: Never true Do you have trouble paying for medicines?: No Do you have trouble getting transportation to medical appointments?: No Do you have trouble paying your heating and electricity bill?: No Do you have trouble taking care of your child, family member or friend?: No Do you have trouble with day-to-day activities such as bathing, preparing meals, shopping, managing finances, etc.?: No Are you currently unemployed and looking for a job?: No Are you interested in more education?: No Currently or been in a relationship where the following occur: no concerns reported THRIVE Score: 0 AUDIT C Alcohol Use Questionnaire (AUDIT-C) 1. How often do you have a drink containing alcohol?: Never 3. How often do you have six or more drinks on one occasion?: Never Total Score: 0 Score Reviewed/Action Taken: Yes AMANDA-7 AMB Questionnaire AMANDA-7 Date AMANDA - 7 assessed: 12/17/23 Feeling nervous, anxious, or on edge: 0 = Not at all Not being able to stop or control worryin = Not at all Worrying too much about different things: 0 = Not at all Trouble relaxin = Not at all Being so restless that it is hard to sit still: 0 = Not at all Becoming easily annoyed or irritable: 0 = Not at all Feeling afraid as if something awful might happen: 0 = Not at all Total AMANDA-7 score (0-4 normal; 5-9 mild; 10-14 moderate; 15-21 severe): 0 Source: Developed by Drs. Kamari Payton, Clara John, Matthieu Trujillo and colleagues, with an educational malina from [employer]. Review of Systems Const Denies chills, Denies fatigue, Denies fever(s) and Denies headache(s) ENT Denies dysphagia, Denies dizziness, Denies otalgia, Denies headache(s), Denies neck pain, Denies odynophagia and Denies sore throat Card Denies chest pain, Denies rapid heart rate, Denies irregular heart rhythm, Denies palpitations and Denies dyspnea Resp Denies chest congestion, Denies cough, Denies dyspnea and Denies wheezing GI Reports abdominal pain (on and off cramping pain, often associated with loose stools), Denies hematochezia, Denies constipation, Denies dysphagia, Denies heartburn, Reports loose stools (on and off), Denies nausea, Denies odynophagia and Denies vomiting Denies hematuria, Denies urinary frequency, Denies dysuria, Denies urinary incontinence and Denies urinary urgency Musc Denies back pain, Denies arthralgias and Denies neck pain Skin/Breast Denies rash Neuro Denies dizziness, Denies headache(s) and Denies paresthesias Psych Denies anxiety and Denies depression Endo Denies fatigue and Denies palpitations Babatunde/Lymph Denies easy bruising Aller/Immun Denies wheezing Physical exam (Primary Care) Vital Signs: Last Vital Signs Pulse 70 12/17/23 14:42 BP 102/60 12/17/23 14:42 Pulse Ox 99 12/17/23 14:42 Oxygen Delivery Method Room Air 12/17/23 14:42 BMI result Body Mass Index 19.4 Tobacco/Smoking Status: Tobacco use Status Tobacco use date assessed 12/17/23 12/17/23 14:50 Patient Tobacco Use Status Never used Tobacco 12/17/23 14:50 e-Cigarette/Vaping Use Never Used 12/17/23 14:50 PHQ-9: PHQ-9 Score PHQ-9: Total score 0 12/17/23 15:28 Depression Screening Interpretation: Negative Thrive Assessment: Date of Thrive Assessment Date Thrive assessed 12/17/23 12/17/23 14:50 Currently or been in a relationship where the following occur: no concerns reported Const General: no acute distress and alert HENMT Ears: TM's normal bilaterally and EAC's normal Throat: Yes posterior oropharynx normal and Yes tonsils normal (no TP congestion) Neck Neck: Yes no lymphadenopathy and Yes supple Thyroid: Thyroid normal Resp Auscultation: clear to auscultation bilaterally, no rales and no wheezes Cardio Rate: regular rate Rhythm: regular rhythm Heart sounds: no murmurs GI Palpation (GI): Soft to palpation and nontender Auscultation: normal bowel sounds General: Yes no CVA tenderness Back/Spine/Pelvis Back: no CVA tenderness Thoracic/Lumbar Spine: No lumbar spinal tenderness Skin Rashes: no rashes Extrem General: Yes no clubbing, cyanosis or edema Results Reviewed Results Reviewed: Laboratory Tests 11/12/23 11/12/23 15:30 15:33 WBC 6.4 Hgb 13.5 Hct 40.6 Plt Count 262 ESR 2 Sodium 142 Potassium 3.4 Creatinine 0.74 Estimated GFR > 60 Fasting Glucose 89 Calcium 9.0 AST 13 ALT 12 Triglycerides 85 Cholesterol 174 LDL Cholesterol, Calc 113 H HDL Cholesterol 44 Vitamin B12 614 25-OH Vitamin D Total 23.9 L TSH 1.20 Ur Specific Cisco 1.025 Urine Protein Negative Urine Glucose (UA) Negative Urine Blood Negative Urine Nitrite Negative Ur Leukocyte Esterase Moderate (2+) H Rheumatoid Factor < 13.0 GURU Screen POSITIVE A GURU Titer 1:80 H Double Strand DNA Ab 1 Coding Level of Care Code Est Pt Level 4 (20657) Diagnoses Lymphocytic colitis K52.832 Migraine without status migrainosus, not intractable, unspecified migraine type G43.909 Intractability: not intractable Migraine type: unspecified Status migrainosus presence: without status migrainosus Palpitations R00.2 Varicose veins of both lower extremities with pain I83.813 Vitamin D deficiency E55.9 B12 deficiency E53.8 Positive GURU (antinuclear antibody) R76.8 Primary insomnia F51.01
[2023-12-17 14:42] VITALS: BP 102/60; PULSE 70; O2SAT 99; BMI 19.4
== END 2023-12-17 15:42 | disposition home or self-care (01) ==
LOC: HO.HMGH 14:30
PROVIDERS: PCP Internal Medicine; Visit Provider Internal Medicine
DX: K52.832 Lymphocytic colitis (principal); G43.909 Migraine, unspecified, not intractable, without status migrainosus; R00.2 Palpitations; I83.813 Varicose veins of bilateral lower extremities with pain; E55.9 Vitamin D deficiency, unspecified; E53.8 Deficiency of other specified B group vitamins; R76.8 Other specified abnormal immunological findings in serum; F51.01 Primary insomnia
CPT/HCPCS: 99499

== ENCOUNTER 2024-05-26 14:08 | Outpatient (AMB) | payer OTHER, SELFPAY ==
--- NOTE | 2024-05-26 14:41 | MHC.OFFWIV ---
Intake Vital Signs 05/26/24 14:42 Height 5 ft 3 in Weight 104 lb 8 oz BMI 18.5 BP 90/50 L Blood Pressure Location Rt brachial Position Sitting Pulse 73 Pulse Source Pulse Oximeter Pulse Oximetry (%) 98 Oxygen Delivery Method Room Air Intake Visit Reasons: EP Sinus congestion Intake Note: Patient is here to follow up on Sinus congestion, was positive for covid on 05/19/24 and neg covid test 05/26/24. Patient Tobacco Use Status: Never used Tobacco Crayon Grader Required: No Town Administrator: Not Required per policy Accompanied by: Self / Same As Patient Allergies nirmatrelvir [From Paxlovid] Allergy (Severe, Verified 05/26/24 14:47) Diarrhea ritonavir [From Paxlovid] Allergy (Severe, Verified 05/26/24 14:47) Diarrhea levofloxacin [Levaquin] Allergy (Intermediate, Verified 05/26/24 14:47) chest pains penicillin V Allergy (Intermediate, Verified 05/26/24 14:47) rash, vomiting Sulfa (Sulfonamide Antibiotics) Allergy (Intermediate, Verified 05/26/24 14:47) welts, rash topiramate Adverse Reaction (Intermediate, Verified 05/26/24 14:47) weight loss, depression trazodone Adverse Reaction (Intermediate, Verified 05/26/24 14:47) nausea, dizziness Do you need a note to return to daycare/school/sports/work: No HPI EP Sinus congestion HPI Details This note is constructed using voice recognition software. While every effort has been made to ensure accuracy, chief of harbor patrol errors may have been included. The patient is a 59 year old female who presents to the clinic today with sinus congestion after covid infection. She notes that she is having left-sided more than right maxillary sinus pressure with pressure down into her teeth. She denies fever, chills, cough, shortness of breath, or any other symptoms. The sinus congestion started with the onset of the COVID infection, however that improved and has again gotten worse over the last few days. [facility] Medical History (Updated 05/26/24 @ 15:29 by Lisbet Garcia NP) COVID-19 vaccine series completed History of COVID-19 Family history of early CAD Positive GURU (antinuclear antibody) Vitamin D deficiency Varicose veins of both lower extremities with pain Lymphocytic colitis Palpitations Migraine Colitis Tachycardia Surgical History (Updated 12/17/23 @ 14:48 by SUJATHA Benitez) History of total hysterectomy History of dilatation and curettage History of esophagogastroduodenoscopy (EGD) History of colonoscopy Status post laser ablation of incompetent vein (~03/2018) History of tubal ligation Hx of cholecystectomy H/O section Hx of resection of rib Family History Father Cancer of pancreas Mother CVD (cardiovascular disease) Brother CVD (cardiovascular disease) Paternal Uncle Colon cancer Social History Housing: House Alcohol intake: former Patient Tobacco Use Status: Never used Tobacco e-Cigarette/Vaping Use: Never Used Second Hand Smoke Exposure: No service: No Current occupational status: employed Current occupation: health care/ right hand dominant Cognitive needs: No Hearing needs: No Vision needs: Yes (Glasses) Review of Systems Const All systems reviewed & are unremarkable except as noted in HPI and below Physical Exam Vital Signs: Last Vital Signs Pulse 73 05/26/24 14:42 BP 90/50 L 05/26/24 14:42 Pulse Ox 98 05/26/24 14:42 Oxygen Delivery Method Room Air 05/26/24 14:42 BMI result Body Mass Index 18.5 Const General: cooperative, healthy appearing, comfortable and no acute distress Orientation/consciousness: patient oriented x3 Limitations: no limitations HEENT Head: Yes normal to inspection Ears: hearing grossly normal bilaterally, external ears normal and TM's normal bilaterally General nose exam: Normal external nose present, Normal nares present, Abnormal mucous membranes and turbinates present erythematous and Nasal discharge present purulent Face and sinus: Yes normal facial exam and Yes sinus tenderness Mouth: Normal oral and palatal mucosa present and moist mucous membranes Throat: Yes posterior oropharynx normal, Yes tonsils normal and Yes uvula midline Eyes General: appearance normal, both eyes and all related structures Neck Neck: Yes normal visual inspection Resp Effort & Inspection: normal respiratory effort, able to speak in complete sentences, Actively coughing, no respiratory distress, not tachypneic, no tripod positioning and no use of accessory muscles Auscultation: clear to auscultation bilaterally Cardio Rate: regular rate Rhythm: regular rhythm Heart sounds: normal S1 and S2 Skin General skin exam: no rashes or lesions noted Neuro General: patient oriented x3 Extrem General: Yes normal to inspection and Yes no clubbing, cyanosis or edema Assessment & Plan Assessment & Plan (1) Sinus infection: Code(s): J32.9 - Chronic sinusitis, unspecified Qualifiers: Sinusitis location: maxillary Chronicity: acute Recurrence: non-recurrent Qualified Code(s): J01.00 - Acute maxillary sinusitis, unspecified Plan: Supportive measures encouraged and reviewed. Advised consideration of sinus rinse if needed. Antibiotic sent to requested pharmacy, adjusted for allergy profile, advised patient to take antibiotics until completed and not to stop if feeling better, unless the patient has side effects. Advised patient to follow up with primary care provider with worsening or failure to resolve. Plan See above for full details and plan. Medications: New doxycycline hyclate 100 mg PO BID 10 days 20 caps 0RF Coding Level of Care Code Est Pt Level 3 (31033) Diagnoses Acute non-recurrent maxillary sinusitis J01.00 Sinusitis location: maxillary Chronicity: acute Recurrence: non-recurrent
[2024-05-26 14:42] VITALS: BP 90/50; PULSE 73; O2SAT 98; BMI 18.5
== END 2024-05-26 15:31 | disposition home or self-care (01) ==
PROVIDERS: PCP Internal Medicine; Visit Provider Registered Nurse
DX: J01.00 Acute maxillary sinusitis, unspecified (principal)

== ENCOUNTER → 2024-05-26 14:08 | Outpatient (BNVA) | payer OTHER, SELFPAY | PROVIDERS: PCP Internal Medicine ==

== ENCOUNTER 2024-06-12 14:29 | Outpatient (REF) | payer OTHER, SELFPAY ==
--- NOTE | ~2024-06-12 | MM_ITS ---
EXAMINATION: MM SCREENING DIGITAL BREAST TOMOSYNTHESIS, BILATERAL CLINICAL INFORMATION: Screening. Asymptomatic. COMPARISON: Mammography: Comparison is made with available priors TECHNIQUE: Digital breast mammography with tomosynthesis is performed in both the craniocaudal and mediolateral oblique views along with computer-aided detection (CAD). FINDINGS: There are scattered areas of fibroglandular density (ACR BI-RADS breast composition Category b). There are no significant masses, abnormal calcifications, or other abnormalities. MM/MM tomosynthesis screening BI IMPRESSION: No mammographic evidence of malignancy. ASSESSMENT: BI-RADS BI-RADS 1 - Negative RECOMMENDATION: Routine annual mammography screening. 1 year F/U This examination should not preclude the clinical evaluation of a suspicious palpable abnormality. This patient's information was entered into a reminder system with a target due date for their next mammogram. Electronically signed by: Lanie Aguilar DO 06/24/2024 12:27 PM EDT
== END 2024-06-12 14:30 | disposition home or self-care (01) ==
LOC: HO.MAMMO 14:29
PROVIDERS: PCP Internal Medicine; Visit Provider Internal Medicine
DX: Z12.31 Encounter for screening mammogram for malignant neoplasm of breast (principal)
CPT/HCPCS: 77063; 77067

== ENCOUNTER → 2024-06-12 14:30 | Outpatient (BNV) | payer OTHER, SELFPAY | PROVIDERS: PCP Internal Medicine; Visit Provider Internal Medicine | DX: Z12.31 Encounter for screening mammogram for malignant neoplasm of breast (principal) | CPT/HCPCS: 77063; 77067 ==

== ENCOUNTER 2024-06-14 08:10 | Outpatient (REF) | payer OTHER, SELFPAY ==
[2024-06-14 08:22] LABS: MANUAL DIFF FLAG NO
[2024-06-14 08:50] LABS: Basophils Absolute Auto 0.1 X10*3/uL (0.0-0.2); Eosinophils Absolute Auto 0.2 X10*3/uL (0.0-0.4); Eosinophils Percent Auto 4.8 % (0-4); Hematocrit 39.4 % (37.0-47.0); Hemoglobin 13.1 g/dl (12.0-16.0); Imm Gran Abs Auto 0.01 X10*3/uL (0.00-0.03); Imm Gran Pct Auto 0.2 % (0.0-0.4); Lymphocytes Absolute Auto 1.7 X10*3/uL (1.2-4.9); Lymphocytes Percent Auto 35.2 % (20-40); Mean Corpuscular HGB Conc 33.2 g/dl (31.0-35.0); Mean Corpuscular Hemoglobin 30.8 pg (27.0-33.0); Mean Corpuscular Volume 92.5 fL (80.0-98.0); Mean Platelet Volume 9.8 fL (9.4-12.3); Monocytes Absolute Auto 0.5 X10*3/uL (0.1-1.2); Monocytes Percent Auto 9.6 % (2-11); Neutrophils Absolute Auto 2.4 x10*3/uL (2.0-8.3); Neutrophils Percent Auto 49.2 % (45-73); Platelet Count 269 X10*3/uL (160-400); Red Blood Count 4.26 X10*6/uL (4.20-5.50); Red Cell Distribution Width 12.9 % (11.0-16.0); White Blood Count 4.8 X10*3/uL (4.8-10.8)
[2024-06-14 09:13] LABS: Appearance Urine Clear; Color Urine Yellow; Glucose Urine UA Negative (Negative); Leukocyte Esterase Urine Trace (Negative); Nitrite Urine Negative (Negative); Specific Gravity - Urine 1.015 (1.005-1.025); UMIC TRIGGER UACC YES; Urine Blood Negative (Negative); Urine Ketones Negative (Negative); Urine Protein Negative (Neg-Trace)
[2024-06-14 09:17] LABS: Bacteria Urine None Seen (None Seen); Hyaline Casts Urine 0-2 /LPF (0-2); RBC Urine 0-2 /HPF (0-2); Squamous Epithelial Cell Urine 0-2 /HPF (0-2); WBC Urine 0-5 /HPF (0-5)
[2024-06-14 09:21] LABS: Alanine Aminotransferase 13 U/L (0-31); Albumin Level 4.2 g/dL (3.5-5.0); Alkaline Phosphatase 32 U/L (39-117); Anion Gap 11 (12-20); Aspartate Amino Transferase 13 U/L (5-31); Bilirubin Total 0.6 mg/dL (0.0-1.0); Blood Urea Nitrogen 12 mg/dL (9-16); Calcium 9.3 mg/dL (8.4-10.2); Carbon Dioxide 28 mmol/L (22-29); Chloride 107 mmol/L (96-108); Cholesterol 167 mg/dL (<200); Estimated Glomerular Filt Rate > 60; Glucose Fasting 98 mg/dL (60-99); HDL Cholesterol 48 mg/dL (>40); LDL Cholesterol Calculated 96 mg/dL (<100); Potassium 4.1 mmol/L (3.3-5.1); Sodium 142 mmol/L (135-145); Total Protein 6.9 g/dL (6.5-8.0); Triglycerides 117 mg/dL (<150)
[2024-06-14 09:40] LABS: TSH reflex Free T4 0.89 uIU/mL (0.32-4.0); Vitamin D 25-OH Total 29.7 ng/mL (>30)
== END 2024-06-14 08:11 | disposition home or self-care (01) ==
LOC: HO.LAB 08:10
PROVIDERS: PCP Internal Medicine; Visit Provider Internal Medicine
DX: D64.9 Anemia, unspecified (principal); E78.00 Pure hypercholesterolemia, unspecified; E55.9 Vitamin D deficiency, unspecified
CPT/HCPCS: 36415; 80053; 80061; 81001; 82306; 84443; 85025

== ENCOUNTER 2024-06-17 10:53 | Outpatient (AMB) | payer OTHER, SELFPAY ==
[2024-06-17 10:56] VITALS: BP 92/74; PULSE 70; O2SAT 98; BMI 18.4
--- NOTE | 2024-06-17 10:56 | A.OFFPC_ITS ---
Vital Signs 06/17/24 10:56 Height 5 ft 3 in Weight 104 lb BMI 18.4 BP 92/74 Blood Pressure Location Lt brachial Position Sitting Pulse 70 Pulse Source Pulse Oximeter Pulse Oximetry (%) 98 Oxygen Delivery Method Room Air Intake Visit Reasons: 6mth f/u Visual Coordinator Required: No Accompanied by: Self / Same As Patient Allergies nirmatrelvir [From Paxlovid] Allergy (Severe, Verified 06/17/24 11:38) Diarrhea ritonavir [From Paxlovid] Allergy (Severe, Verified 06/17/24 11:38) Diarrhea levofloxacin [Levaquin] Allergy (Intermediate, Verified 06/17/24 11:38) chest pains penicillin V Allergy (Intermediate, Verified 06/17/24 11:38) rash, vomiting Sulfa (Sulfonamide Antibiotics) Allergy (Intermediate, Verified 06/17/24 11:38) welts, rash topiramate Adverse Reaction (Intermediate, Verified 06/17/24 11:38) weight loss, depression trazodone Adverse Reaction (Intermediate, Verified 06/17/24 11:38) nausea, dizziness Medication List - Last Reconciled 06/17/24 by Brice Gallagher MD letrozole 2.5 mg PO DAILY loperamide 2 mg PO Q4H PRN metoclopramide HCl 10 mg PO QIDACHS propranolol ER 80 mg PO BEDTIME sumatriptan succinate take 1 tab at onset of headache; if no relief may repeat 1 tab after at least 2 hrs; max = 4 tabs/24 hr PO 30 days topiramate 25 mg PO DAILY zolpidem 10 mg PO BEDTIME PRN 30 days Tobacco use date assessed: 06/17/24 Dental Screening Dental Screen Date: 06/17/24 Did you have a dental visit in the last 12 months?: No Did you have a dental problem in the last 6 months where you did not have access to dental care?: No Was dental information given to patient?: Patient has dentist HPI 6mth f/u HPI Details Patient comes in today for her follow up visit States that she feels okay She denies any headaches or dizziness Denies any chest pains, no SOB No nausea/vomiting, no abdominal pain No change in bowel habits noted Needs her Zolpidem Rx refilled today She had her follow up labs done a few days ago - to discuss her results Patient underwent surgery on 02/27/2024, during which 14 tumors were removed under the care of Dr. 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 She is currently on Letrozole 2.5 mg QD to help manage her condition, with regular blood work scheduled on a monthly basis The patient's inhibin levels, previously as high as 600, have lowered to 78, indicating a positive response to treatment She anticipates a CT scan in June or July to check for any tumor growth Patient adds that last month (April), she tested positive for COVID-19 and started taking Paxlovid but developed a lot of diarrhea on the Rx and she stopped taking it after a couple of days - she later found out that there is a significant lactose content in Plaxilovid and people with lactose intolerance should avoid taking them if possible [facility] Medical History (Updated 06/17/24 @ 12:21 by Brice Gallagher MD) Granulosa cell tumor of ovary COVID-19 vaccine series completed History of COVID-19 Family history of early CAD Positive GURU (antinuclear antibody) Vitamin D deficiency Varicose veins of both lower extremities with pain Lymphocytic colitis Palpitations Migraine Colitis Tachycardia Surgical History History of total hysterectomy History of dilatation and curettage History of esophagogastroduodenoscopy (EGD) History of colonoscopy Status post laser ablation of incompetent vein (~03/2018) History of tubal ligation Hx of cholecystectomy H/O section Hx of resection of rib Family History Father Cancer of pancreas Mother CVD (cardiovascular disease) Brother CVD (cardiovascular disease) Paternal Uncle Colon cancer Social History Housing: House Alcohol intake: former Patient Tobacco Use Status: Never used Tobacco e-Cigarette/Vaping Use: Never Used Second Hand Smoke Exposure: No service: No Current occupational status: employed Current occupation: health care/ right hand dominant Cognitive needs: No Hearing needs: No Vision needs: Yes (Glasses) Questionnaire PHQ-9 Over the last 2 weeks, how often have you been bothered by any of the following problems? 1. Little interest or pleasure in doing things: not at all 2. Feeling down, depressed, or hopeless: not at all 3. Trouble falling or staying asleep, or sleeping too much: not at all 4. Feeling tired or having little energy: not at all 5. Poor appetite or overeating: not at all 6. Feeling bad about yourself - or that you are a failure or have let yourself or your family down: not at all 7. Trouble concentrating on things, such as reading the newspaper or watching television: not at all 8. Moving or speaking so slowly that other people could have noticed. Or the opposite - being so fidgety or restless that you have been moving around a lot more than usual: not at all 9. Thoughts that you would be better off or of hurting yourself in some way: not at all Total score: 0 Depression Screening Interpretation: Negative Depression Screening Done: Yes 70527 - PHQ-9 Billing: Yes Source: Developed by Drs. Kamari Payton, Clara John, Matthieu Trujillo and colleagues, with an educational malina from [employer]. Thrive Questionnaire Date Thrive assessed: 06/17/24 I am a: Patient What is your living situation today?: I have a steady place to live Within the past 12 months, did the food you bought not last and you didn't have the money to get more?: Never true Within the past 12 months, did you worry whether your food would run out before you got money to buy more?: Never true Do you have trouble paying for medicines?: No Do you have trouble getting transportation to medical appointments?: No Do you have trouble paying your heating and electricity bill?: No Do you have trouble taking care of your child, family member or friend?: No Do you have trouble with day-to-day activities such as bathing, preparing meals, shopping, managing finances, etc.?: No Are you currently unemployed and looking for a job?: No Are you interested in more education?: No Please select the resources that you would like help with: None Currently or been in a relationship where the following occur: No concerns reported THRIVE Score: 0 AUDIT C Alcohol Use Questionnaire (AUDIT-C) 1. How often do you have a drink containing alcohol?: Never 3. How often do you have six or more drinks on one occasion?: Never Total Score: 0 Score Reviewed/Action Taken: Yes AMANDA-7 AMB Questionnaire AMANDA-7 Date AMNADA - 7 assessed: 06/17/24 Feeling nervous, anxious, or on edge: 0 = Not at all Not being able to stop or control worryin = Not at all Worrying too much about different things: 0 = Not at all Trouble relaxin = Not at all Being so restless that it is hard to sit still: 0 = Not at all Becoming easily annoyed or irritable: 0 = Not at all Feeling afraid as if something awful might happen: 0 = Not at all Total AMANDA-7 score (0-4 normal; 5-9 mild; 10-14 moderate; 15-21 severe): 0 Source: Developed by Drs. Kamari Payton, Clara John, Matthieu Trujillo and colleagues, with an educational malina from [employer]. Review of Systems Const Denies chills, Reports fatigue, Denies fever(s) and Denies headache(s) ENT Denies dysphagia, Denies dizziness, Denies otalgia, Denies headache(s), Denies neck pain, Denies odynophagia and Denies sore throat Card Denies chest pain, Denies rapid heart rate, Denies irregular heart rhythm, Denies palpitations and Denies dyspnea Resp Denies chest congestion, Denies cough, Denies dyspnea and Denies wheezing GI Reports abdominal pain (on and off cramping pain, often associated with loose stools), Denies hematochezia, Denies constipation, Denies dysphagia, Denies heartburn, Reports diarrhea (on and off), Reports loose stools (on and off), Denies nausea, Denies odynophagia and Denies vomiting Denies hematuria, Denies urinary frequency, Denies dysuria, Denies urinary incontinence and Denies urinary urgency Musc Denies back pain, Denies arthralgias and Denies neck pain Skin/Breast Denies rash Neuro Denies dizziness, Denies headache(s) and Denies paresthesias Psych Denies anxiety and Denies depression Endo Reports fatigue and Denies palpitations Babatunde/Lymph Denies easy bruising Aller/Immun Denies wheezing Physical exam (Primary Care) Vital Signs: Last Vital Signs Pulse 70 10/22/24 10:56 BP 92/74 06/17/24 10:56 Pulse Ox 98 06/17/24 10:56 Oxygen Delivery Method Room Air 06/17/24 10:56 BMI result Body Mass Index 18.4 Tobacco/Smoking Status: Tobacco use Status Tobacco use date assessed 06/17/24 06/17/24 10:58 Patient Tobacco Use Status Never used Tobacco 06/17/24 10:58 e-Cigarette/Vaping Use Never Used 06/17/24 10:58 PHQ-9: PHQ-9 Score PHQ-9: Total score 0 06/17/24 11:04 Depression Screening Interpretation: Negative Thrive Assessment: Date of Thrive Assessment Date Thrive assessed 06/17/24 06/17/24 10:58 Currently or been in a relationship where the following occur: No concerns reported Const General: no acute distress and alert HENMT Ears: TM's normal bilaterally and EAC's normal Throat: Yes posterior oropharynx normal and Yes tonsils normal (no TP congestion) Neck Neck: Yes no lymphadenopathy and Yes supple Thyroid: Thyroid normal Resp Auscultation: clear to auscultation bilaterally, no rales and no wheezes Cardio Rate: regular rate Rhythm: regular rhythm Heart sounds: no murmurs GI Palpation (GI): Soft to palpation and nontender Auscultation: normal bowel sounds General: Yes no CVA tenderness Back/Spine/Pelvis Back: no CVA tenderness Thoracic/Lumbar Spine: No lumbar spinal tenderness Skin Rashes: no rashes Extrem General: Yes no clubbing, cyanosis or edema Office Procedures Flu Questionnaire Does the patient have a severe egg allergy?: No Immunizations Fluarix Triv [id number] (PF) 45 mcg (15 mcg x 3)/0.5 mL IM syringe Performing Provider: Brice Gallagher MD [facility] Documented (not given) by: SUJATHA Steiner on 06/17/24 11:06 Reason Not Given: Received Previously Results Reviewed Results Reviewed: Laboratory Tests 06/14/24 08:21 WBC 4.8 Hgb 13.1 Hct 39.4 Plt Count 269 Sodium 142 Potassium 4.1 D Creatinine 0.78 Estimated GFR > 60 Fasting Glucose 98 AST 13 ALT 13 Triglycerides 117 Cholesterol 167 LDL Cholesterol, Calc 96 HDL Cholesterol 48 25-OH Vitamin D Total 29.7 L TSH 0.89 Ur Specific [place] 1.015 Urine Protein Negative Urine Glucose (UA) Negative Urine Blood Negative Urine Nitrite Negative Ur Leukocyte Esterase Trace H Coding Level of Care Code Est Pt Level 4 (07920) Diagnoses Migraine without status migrainosus, not intractable, unspecified migraine type G43.909 Migraine type: unspecified Status migrainosus presence: without status migrainosus Intractability: not intractable Lymphocytic colitis K52.832 Palpitations R00.2 Granulosa cell tumor of ovary, unspecified laterality D39.10 Laterality: unspecified laterality Vitamin D deficiency E55.9 Varicose veins of both lower extremities with pain I83.813 Positive GURU (antinuclear antibody) R76.8 Primary insomnia F51.01 Assessment & Plan Assessment & Plan (1) Migraine: Code(s): G43.909 - Migraine, unspecified, not intractable, without status migrainosus Category: Medical Qualifiers: Migraine type: unspecified Status migrainosus presence: without status migrainosus Intractability: not intractable Qualified Code(s): G43.909 - Migraine, unspecified, not intractable, without status migrainosus Plan: Stable/controlled lately Reinforced avoidance of any potential migraine triggers, including stress and lack of sleep Continue Topiramate 25 mg Q HS and Propranolol ER 80 mg Q HS although she is taking Propranolol ER more for her tachycardia/palpiatations than for migraine headaches Continue Sumatriptan 50 mg PRN for headaches and Ondansetron 4 mg TID PRN for nausea Follow up with neurology as scheduled (2) Lymphocytic colitis: Code(s): K52.832 - Lymphocytic colitis Category: Medical Plan: Biopsy revealed lymphocytic colitis pattern on screening colonoscopy done in January 2022 She was on Budesonide ER 3 mg QD in the past but this was discontinued and she was tried instead on Mesalamine ER, which her insurance would not cover (she has to pay a very high co-pay for the Rx) She is currently only taking Imodium PRN, which helps control her symptoms somewhat Follow up with GI (Dr. Diallo) as scheduled (3) Palpitations: Code(s): R00.2 - Palpitations Category: Medical Plan: Patient has been seen by cardiology and evaluated for this a couple of years ago - echocardiogram and Holter monitor have all come back normal Continue Propranolol ER 80 mg QD Follow up with cardiology as scheduled (4) Granulosa cell tumor of ovary: Code(s): D39.10 - Neoplasm of uncertain behavior of unspecified ovary Category: Medical Qualifiers: Laterality: unspecified laterality Qualified Code(s): D39.10 - Neoplasm of uncertain behavior of unspecified ovary Plan: She underwent resection of intraperitoneal disease via da Danna on 02/27/[address] Radha Crain She is currently on Letrozole 2.5 mg QD Follow up with Dr. Crain as scheduled for continunig surveillance, with regular blood work scheduled on a monthly basis The patient's inhibin levels, previously as high as 600, have supposedly lowered to 78, indicating a positive response to treatment She anticipates a CT scan in June or July 2024 to check for any tumor growth (5) Vitamin D deficiency: Code(s): E55.9 - Vitamin D deficiency, unspecified Category: Medical Plan: Continue Vitamin D3 2000 units QD (6) Varicose veins of both lower extremities with pain: Code(s): I83.813 - Varicose veins of bilateral lower extremities with pain Category: Medical Plan: S/P EVLT by Dr. Jonathan Meeks a few years ago with (+) relief/improvement of symptoms but patient reports that she has been experiencing a gradual recurrence of her symptoms recently Follow up with vascular surgery as scheduled or as needed (7) Positive GURU (antinuclear antibody): Code(s): R76.8 - Other specified abnormal immunological findings in serum Category: Medical Plan: (+) Hx of positive GURU a few years ago - repeat testing done a few months ago came back negative but her repeat test in October 2022 is positive again Advised that her positive results a few years ago and more recently may be false positive results triggered in part by her colitis Patient currently has no evidence or findings of inflammatory joint disease although she reports experiencing more frequent on and off joint pains lately She had her double-stranded DNA test test done for confirmation a few times over the years, most recently in October 2023, and her ds DNA tests have all come back normal/negative (8) Primary insomnia: Code(s): F51.01 - Primary insomnia Category: Medical Plan: Sleep hygiene reinforced Continue Zolpidem 10 mg Q HS PRN - Rx refilled Plan To return in 6 months for her next annual physical examination Orders: Orders Complete Blood Count Auto Diff 6 Months D64.9 - Anemia, unspecified TSH reflex Free T4 6 Months E78.00 - Pure hypercholesterolemia, unspecified Vitamin D 25-OH Total 6 Months E55.9 - Vitamin D deficiency, unspecified Vitamin B12 and Folate 6 Months E53.8 - Deficiency of other specified B group vitamins Influenza [id number] Immunization Today Z23 - Encounter for immunization Comprehensive [place]. Panel Fast 6 Months E78.00 - Pure hypercholesterolemia, unspecified Lipid Panel 6 Months E78.00 - Pure hypercholesterolemia, unspecified UA CC w/rflx Micro + Cult 6 Months R30.0 - Dysuria Medications: Refilled zolpidem 10 mg PO BEDTIME 30 days PRN 30 tabs 2RF insomnia
== END 2024-06-17 11:56 | disposition home or self-care (01) ==
PROVIDERS: PCP Internal Medicine; Visit Provider Internal Medicine
DX: G43.909 Migraine, unspecified, not intractable, without status migrainosus (principal); K52.832 Lymphocytic colitis; R00.2 Palpitations; D39.10 Neoplasm of uncertain behavior of unspecified ovary; E55.9 Vitamin D deficiency, unspecified; I83.813 Varicose veins of bilateral lower extremities with pain; R76.8 Other specified abnormal immunological findings in serum; F51.01 Primary insomnia; Z23 Encounter for immunization

== ENCOUNTER → 2024-06-17 10:53 | Outpatient (BNVA) | payer OTHER, SELFPAY | PROVIDERS: PCP Internal Medicine; Visit Provider Internal Medicine | DX: G43.909 Migraine, unspecified, not intractable, without status migrainosus (principal); K52.832 Lymphocytic colitis; R00.2 Palpitations; D39.10 Neoplasm of uncertain behavior of unspecified ovary; E55.9 Vitamin D deficiency, unspecified; I83.813 Varicose veins of bilateral lower extremities with pain; R76.8 Other specified abnormal immunological findings in serum; F51.01 Primary insomnia; Z79.811 Long term (current) use of aromatase inhibitors; Z79.899 Other long term (current) drug therapy | CPT/HCPCS: 90471; 96127 ==

== ENCOUNTER 2024-12-13 08:23 | Outpatient (REF) | payer OTHER, SELFPAY ==
[2024-12-13 08:39] LABS: MANUAL DIFF FLAG NO
[2024-12-13 09:06] LABS: Basophils Absolute Auto 0.1 X10*3/uL (0.0-0.2); Basophils Percent Auto 0.8 % (0-2); Eosinophils Absolute Auto 0.2 X10*3/uL (0.0-0.4); Eosinophils Percent Auto 4.1 % (0-4); Hematocrit 39.6 % (37.0-47.0); Hemoglobin 13.1 g/dl (12.0-16.0); Imm Gran Abs Auto 0.03 X10*3/uL (0.00-0.03); Imm Gran Pct Auto 0.5 % (0.0-0.4); Lymphocytes Absolute Auto 1.6 X10*3/uL (1.2-4.9); Lymphocytes Percent Auto 26.2 % (20-40); Mean Corpuscular HGB Conc 33.1 g/dl (31.0-35.0); Mean Corpuscular Volume 93.6 fL (80.0-98.0); Mean Platelet Volume 9.9 fL (9.4-12.3); Monocytes Absolute Auto 0.6 X10*3/uL (0.1-1.2); Monocytes Percent Auto 10.6 % (2-11); Neutrophils Absolute Auto 3.4 x10*3/uL (2.0-8.3); Neutrophils Percent Auto 57.8 % (45-73); Platelet Count 273 X10*3/uL (160-400); Red Blood Count 4.23 X10*6/uL (4.20-5.50); Red Cell Distribution Width 13.2 % (11.0-16.0); White Blood Count 5.9 X10*3/uL (4.8-10.8)
[2024-12-13 09:17] LABS: Appearance Urine Clear; Color Urine Yellow; Glucose Urine UA Negative (Negative); Leukocyte Esterase Urine Negative (Negative); Nitrite Urine Negative (Negative); Urine Blood Negative (Negative); Urine Ketones Negative (Negative); Urine Protein Negative (Neg-Trace)
[2024-12-13 10:03] LABS: Alanine Aminotransferase 13 U/L (0-31); Albumin Level 4.4 g/dL (3.5-5.0); Alkaline Phosphatase 40 U/L (39-117); Aspartate Amino Transferase 15 U/L (5-31); Bilirubin Total 0.4 mg/dL (0.0-1.0); Blood Urea Nitrogen 19 mg/dL (9-16); Calcium 9.6 mg/dL (8.4-10.2); Cholesterol 176 mg/dL (<200); Estimated Glomerular Filt Rate > 60; Glucose Fasting 97 mg/dL (60-99); HDL Cholesterol 49 mg/dL (>40); LDL Cholesterol Calculated 103 mg/dL (<100); Triglycerides 122 mg/dL (<150)
[2024-12-13 10:12] LABS: TSH reflex Free T4 1.29 uIU/mL (0.32-4.0); Vitamin D 25-OH Total 30.9 ng/mL (>30)
[2024-12-13 10:23] LABS: Anion Gap 11 (12-20)
[2024-12-13 10:24] LABS: Folate 10.5 ng/mL (> or = 4.0); Vitamin B12 519 pg/mL (200-900)
[2024-12-13 10:32] LABS: Carbon Dioxide 24 mmol/L (22-29); Chloride 108 mmol/L (96-108); Potassium 4.3 mmol/L (3.3-5.1); Sodium 140 mmol/L (135-145)
== END 2024-12-13 08:24 | disposition home or self-care (01) ==
LOC: HO.LAB 08:23
PROVIDERS: PCP Internal Medicine; Visit Provider Internal Medicine
DX: D64.9 Anemia, unspecified (principal); R30.0 Dysuria; E78.00 Pure hypercholesterolemia, unspecified; E53.8 Deficiency of other specified B group vitamins; E55.9 Vitamin D deficiency, unspecified
CPT/HCPCS: 36415; 80053; 80061; 81003; 82306; 82607; 82746; 84443; 85025

== ENCOUNTER 2024-12-16 10:39 | Outpatient (AMB) | payer OTHER, SELFPAY ==
--- NOTE | 2024-12-16 10:43 | A.OFFPC_ITS ---
Vital Signs 12/16/24 10:44 Height 5 ft 3 in Weight 101 lb BMI 17.9 BP 102/64 Blood Pressure Location Lt brachial Position Sitting Pulse 64 Pulse Source Pulse Oximeter Pulse Oximetry (%) 98 Oxygen Delivery Method Room Air Intake Visit Reasons: 6 month f/u Tub Chucker Required: No Accompanied by: Self / Same As Patient Allergies nirmatrelvir [From Paxlovid] Allergy (Severe, Verified 12/16/24 10:53) Diarrhea ritonavir [From Paxlovid] Allergy (Severe, Verified 12/16/24 10:53) Diarrhea levofloxacin [Levaquin] Allergy (Intermediate, Verified 12/16/24 10:53) chest pains penicillin V Allergy (Intermediate, Verified 12/16/24 10:53) rash, vomiting Sulfa (Sulfonamide Antibiotics) Allergy (Intermediate, Verified 12/16/24 10:53) welts, rash topiramate Adverse Reaction (Intermediate, Verified 12/16/24 10:53) weight loss, depression trazodone Adverse Reaction (Intermediate, Verified 12/16/24 10:53) nausea, dizziness Medication List - Last Reconciled 12/16/24 by Brice Gallagher MD letrozole 2.5 mg PO DAILY loperamide 2 mg PO Q4H PRN mesalamine ER (Apriso) 1.5 grams (4 x 0.375 gram) PO DAILY 30 days metoclopramide HCl 10 mg PO QIDACHS propranolol ER 80 mg PO BEDTIME sumatriptan succinate take 1 tab at onset of headache; if no relief may repeat 1 tab after at least 2 hrs; max = 4 tabs/24 hr PO 30 days topiramate 25 mg PO DAILY zolpidem 10 mg PO BEDTIME PRN 30 days Tobacco use date assessed: 12/16/24 Dental Screening Dental Screen Date: 12/16/24 Did you have a dental visit in the last 12 months?: No Did you have a dental problem in the last 6 months where you did not have access to dental care?: No Was dental information given to patient?: No HPI 6 month f/u HPI Details Patient comes in today for her follow up visit States that she has been having frequent diarrhea/loose stools for weeks now, often going to the bathroom up to 6 to 10 times a day States that her stools are mostly watery and loose but she has not noticed any blood in her stool She tried going back on her Apriso Rx but states that taking the 4 tablets in one dose made her feel very ill and she could not continue on it so she stopped taking it a few weeks ago States that she has tried contacting Dr. Diallo's office several times over the past few weeks to get some advice on what to do but no one has been getting back to her Adds that she had a PET-CT done at the facility on [address] a couple of weeks ago and was reportedly advised that she has some concerning findings and that she may require surgical resection of her small bowel at some point but she was advised to consult with her emery wheel molder first regarding this She denies any fever; denies any headaches or dizziness but states that she feels drained at times from her constant trips to the bathroom States that she had to cancel her family trip to [place] recently due to her frequent diarrhea and how she feels; states that everyone else went ahead on the trip without her She denies any chest pains, no increased SOB No nausea/vomiting, no abdominal pain but states that her stomach feels bloated and uncomfortable all the time lately She had her follow up labs done a few days ago - to discuss her results [facility] Medical History Granulosa cell tumor of ovary COVID-19 vaccine series completed History of COVID-19 Family history of early CAD Positive GURU (antinuclear antibody) Vitamin D deficiency Varicose veins of both lower extremities with pain Lymphocytic colitis Palpitations Migraine Colitis Tachycardia Surgical History History of total hysterectomy History of dilatation and curettage History of esophagogastroduodenoscopy (EGD) History of colonoscopy Status post laser ablation of incompetent vein (~03/2018) History of tubal ligation Hx of cholecystectomy H/O section Hx of resection of rib Family History Father Cancer of pancreas Mother CVD (cardiovascular disease) Brother CVD (cardiovascular disease) Paternal Uncle Colon cancer Social History Housing: House Alcohol intake: former Patient Tobacco Use Status: Never used Tobacco e-Cigarette/Vaping Use: Never Used Second Hand Smoke Exposure: No service: No Current occupational status: employed Current occupation: health care/ right hand dominant Cognitive needs: No Hearing needs: No Vision needs: Yes (Glasses) Questionnaire PHQ-9 Over the last 2 weeks, how often have you been bothered by any of the following problems? 1. Little interest or pleasure in doing things: not at all 2. Feeling down, depressed, or hopeless: not at all 3. Trouble falling or staying asleep, or sleeping too much: not at all 4. Feeling tired or having little energy: not at all 5. Poor appetite or overeating: not at all 6. Feeling bad about yourself - or that you are a failure or have let yourself or your family down: not at all 7. Trouble concentrating on things, such as reading the newspaper or watching television: not at all 8. Moving or speaking so slowly that other people could have noticed. Or the opposite - being so fidgety or restless that you have been moving around a lot more than usual: not at all 9. Thoughts that you would be better off or of hurting yourself in some way: not at all Total score: 0 Depression Screening Interpretation: Negative Depression Screening Done: Yes 00950 - PHQ-9 Billing: Yes Source: Developed by Drs. Kamari Payton, Clara John, Matthieu Trujillo and colleagues, with an educational malina from [employer]. Thrive Questionnaire Date Thrive assessed: 12/16/24 I am a: Patient What is your living situation today?: I have a steady place to live Within the past 12 months, did the food you bought not last and you didn't have the money to get more?: Never true Within the past 12 months, did you worry whether your food would run out before you got money to buy more?: Never true Do you have trouble paying for medicines?: No Do you have trouble getting transportation to medical appointments?: No Do you have trouble paying your heating and electricity bill?: No Do you have trouble taking care of your child, family member or friend?: No Do you have trouble with day-to-day activities such as bathing, preparing meals, shopping, managing finances, etc.?: No Are you currently unemployed and looking for a job?: No Are you interested in more education?: No Please select the resources that you would like help with: None Currently or been in a relationship where the following occur: No concerns reported THRIVE Score: 0 AUDIT C Alcohol Use Questionnaire (AUDIT-C) 1. How often do you have a drink containing alcohol?: Never 3. How often do you have six or more drinks on one occasion?: Never Total Score: 0 Score Reviewed/Action Taken: Yes AMANDA-7 AMB Questionnaire AMANDA-7 Date AMANDA - 7 assessed: 12/16/24 Feeling nervous, anxious, or on edge: 0 = Not at all Not being able to stop or control worryin = Not at all Worrying too much about different things: 0 = Not at all Trouble relaxin = Not at all Being so restless that it is hard to sit still: 0 = Not at all Becoming easily annoyed or irritable: 0 = Not at all Feeling afraid as if something awful might happen: 0 = Not at all Total AMANDA-7 score (0-4 normal; 5-9 mild; 10-14 moderate; 15-21 severe): 0 Source: Developed by Drs. Kamari Payton, Clara John, Matthieu Trujillo and colleagues, with an educational malina from [employer]. Review of Systems Const Denies chills, Denies fatigue, Denies fever(s) and Denies headache(s) ENT Denies dysphagia, Denies dizziness, Denies otalgia, Denies headache(s), Denies neck pain, Denies odynophagia and Denies sore throat Card Denies chest pain, Denies rapid heart rate, Denies irregular heart rhythm, Denies palpitations and Denies dyspnea Resp Denies chest congestion, Denies cough and Denies dyspnea GI Reports abdominal pain (on and off cramping pain, often associated with loose stools), Denies hematochezia, Denies constipation, Denies dysphagia, Denies heartburn, Reports diarrhea (on and off), Reports loose stools (on and off), Denies nausea, Denies odynophagia and Denies vomiting Denies hematuria, Denies difficulty voiding, Denies dysuria, Denies urinary incontinence and Denies urinary urgency Musc Denies back pain, Denies arthralgias and Denies neck pain Skin/Breast Denies rash Neuro Denies dizziness, Denies headache(s) and Denies paresthesias Psych Denies anxiety and Denies depression Endo Denies fatigue and Denies palpitations Babatunde/Lymph Denies easy bruising Physical exam (Primary Care) Vital Signs: Last Vital Signs Pulse 64 12/16/24 10:44 BP 102/64 12/16/24 10:44 Pulse Ox 98 12/16/24 10:44 Oxygen Delivery Method Room Air 12/16/24 10:44 BMI result Body Mass Index 17.9 Tobacco/Smoking Status: Tobacco use Status Tobacco use date assessed 12/16/24 12/16/24 10:49 Patient Tobacco Use Status Never used Tobacco 12/16/24 10:49 e-Cigarette/Vaping Use Never Used 12/16/24 10:49 PHQ-9: PHQ-9 Score PHQ-9: Total score 0 12/16/24 10:49 Depression Screening Interpretation: Negative Thrive Assessment: Date of Thrive Assessment Date Thrive assessed 12/16/24 12/16/24 10:49 Currently or been in a relationship where the following occur: No concerns reported Const General: no acute distress and alert HENMT Ears: TM's normal bilaterally and EAC's normal Throat: Yes posterior oropharynx normal and Yes tonsils normal (no TP congestion) Neck Neck: Yes supple and No lymphadenopathy Thyroid: Thyroid normal Resp Auscultation: clear to auscultation bilaterally, no rales and no wheezes Cardio Rate: regular rate Rhythm: regular rhythm Heart sounds: no murmurs GI Palpation (GI): Soft to palpation, nontender, no guarding and No Rebound tenderness present Auscultation: Hyperactive bowel sounds present General: Yes no CVA tenderness Back/Spine/Pelvis Back: no CVA tenderness Thoracic/Lumbar Spine: No lumbar spinal tenderness Skin Rashes: no rashes Extrem General: Yes no clubbing, cyanosis or edema Results Reviewed Results Reviewed: Laboratory Tests 12/13/24 12/13/24 08:37 08:38 WBC 5.9 Hgb 13.1 Hct 39.6 Plt Count 273 Sodium 140 Potassium 4.3 Creatinine 0.75 Estimated GFR > 60 Fasting Glucose 97 Calcium 9.6 AST 15 ALT 13 Triglycerides 122 Cholesterol 176 LDL Cholesterol, Calc 103 H HDL Cholesterol 49 Vitamin B12 519 25-OH Vitamin D Total 30.9 TSH 1.29 Ur Specific [place] 1.020 Urine Protein Negative Urine Glucose (UA) Negative Urine Blood Negative Urine Nitrite Negative Ur Leukocyte Esterase Negative Coding Level of Care Code Est Pt Level 4 (68021) Diagnoses Migraine without status migrainosus, not intractable, unspecified migraine type G43.909 Migraine type: unspecified Status migrainosus presence: without status migrainosus Intractability: not intractable Lymphocytic colitis K52.832 Palpitations R00.2 Granulosa cell tumor of ovary, unspecified laterality D39.10 Laterality: unspecified laterality Vitamin D deficiency E55.9 Varicose veins of both lower extremities with pain I83.813 Positive GURU (antinuclear antibody) R76.8 Primary insomnia F51.01 Additional Codes PHQ-9 - 35468 - PHQ-9 Billing: Yes ([id number]) Assessment & Plan Assessment & Plan (1) Migraine: Code(s): G43.909 - Migraine, unspecified, not intractable, without status migrainosus Category: Medical Qualifiers: Migraine type: unspecified Status migrainosus presence: without status migrainosus Intractability: not intractable Qualified Code(s): G43.909 - Migraine, unspecified, not intractable, without status migrainosus Plan: Stable/controlled lately Reinforced avoidance of any potential migraine triggers as much as possible, including stress and lack of sleep Continue Topiramate 25 mg Q HS and Propranolol ER 80 mg Q HS although she is taking Propranolol ER more for her tachycardia/palpitations than for migraine headaches Continue Sumatriptan 50 mg PRN for symptomatic relief of her headaches and Ondansetron 4 mg TID PRN for nausea Follow up with neurology as scheduled (2) Lymphocytic colitis: Code(s): K52.832 - Lymphocytic colitis Category: Medical Plan: Biopsy revealed lymphocytic colitis pattern on screening colonoscopy done in January 2022 She was on Budesonide ER 3 mg QD in the past but this was discontinued and she was tried instead on Mesalamine ER, which her insurance would not cover previously (she has to pay a very high co-pay for the Rx) but she was eventually able to get her Rx States that she tried taking it again recently but she felt sick after taking the prescribed 4 tablets a day so she stopped taking it immediately She is instructed to try starting on it again but to start at 1 tablet daily and to gradually increase it every 3 to 4 days as tolerated until either her diarrhea slows down or she starts to experience side effects from the Rx Patient states that she has been trying to reach out to Dr. Diallo for advice for the past few weeks unsuccessfully As she has not seen Dr. Diallo for at least a couple of years now, will send out a new GI referral for her and hopefully, she will hear back from Dr. Diallo's office soon (3) Palpitations: Code(s): R00.2 - Palpitations Category: Medical Plan: Patient has been seen by cardiology and evaluated for this a couple of years ago - echocardiogram and Holter monitor have all come back normal Continue Propranolol ER 80 mg QD Follow up with cardiology as scheduled (4) Granulosa cell tumor of ovary: Code(s): D39.10 - Neoplasm of uncertain behavior of unspecified ovary Category: Medical Qualifiers: Laterality: unspecified laterality Qualified Code(s): D39.10 - Neoplasm of uncertain behavior of unspecified ovary Plan: She underwent resection of intraperitoneal disease via da Danna on 02/27/[address] Radha Crain She is currently on Letrozole 2.5 mg QD Follow up with Dr. Crain as scheduled for continuing surveillance, with regular blood work scheduled on a monthly basis The patient's inhibin levels, previously as high as 600, have supposedly lowered to 78, indicating a positive response to treatment Patient states that she had a PET-CT scan done a couple of weeks ago and was advised that there were some concerning findings that may require her to undergo small bowel resection and is advised to reach out to her emery wheel molder regarding this Will try to obtain a copy of her recent PET-CT report for review (5) Vitamin D deficiency: Code(s): E55.9 - Vitamin D deficiency, unspecified Category: Medical Plan: Continue Vitamin D3 2000 units QD (6) Varicose veins of both lower extremities with pain: Code(s): I83.813 - Varicose veins of bilateral lower extremities with pain Category: Medical Plan: S/P EVLT by Dr. Jonathan Meeks a few years ago with (+) relief/improvement of symptoms but patient reports that she has been experiencing a gradual recurrence of her symptoms recently Follow up with vascular surgery as scheduled or as needed (7) Positive GURU (antinuclear antibody): Code(s): R76.8 - Other specified abnormal immunological findings in serum Category: Medical Plan: (+) Hx of positive GURU a few years ago - repeat testing done a few months later came back negative but her repeat test in October 2022 is positive again Advised that her positive results a few years ago and more recently may be false positive results triggered in part by her colitis Patient currently has no evidence or findings of inflammatory joint disease although she reports experiencing more frequent on and off joint pains lately She had her double-stranded DNA test test done for confirmation a few times over the years, most recently in October 2023, and her ds DNA tests have all come back normal/negative (8) Primary insomnia: Code(s): F51.01 - Primary insomnia Category: Medical Plan: Sleep hygiene reinforced Continue Zolpidem 10 mg Q HS PRN Plan Follow up in 6 months Orders: Orders Comprehensive [place]. Panel Fast 6 Months E78.00 - Pure hypercholesterolemia, unspecified TSH reflex Free T4 6 Months E78.00 - Pure hypercholesterolemia, unspecified UA CC w/rflx Micro + Cult 6 Months R30.0 - Dysuria Complete Blood Count Auto Diff 6 Months D64.9 - Anemia, unspecified Lipid Panel 6 Months E78.00 - Pure hypercholesterolemia, unspecified Vitamin D 25-OH Total 6 Months E55.9 - Vitamin D deficiency, unspecified Referrals Gastroenterology Referral K52.832 - Lymphocytic colitis
[2024-12-16 10:44] VITALS: BP 102/64; PULSE 64; O2SAT 98; BMI 17.9
== END 2024-12-16 11:16 | disposition home or self-care (01) ==
LOC: HO.HMCH 10:40
PROVIDERS: PCP Internal Medicine; Visit Provider Internal Medicine
DX: G43.909 Migraine, unspecified, not intractable, without status migrainosus (principal); K52.832 Lymphocytic colitis; R00.2 Palpitations; D39.10 Neoplasm of uncertain behavior of unspecified ovary; E55.9 Vitamin D deficiency, unspecified; I83.813 Varicose veins of bilateral lower extremities with pain; R76.8 Other specified abnormal immunological findings in serum; F51.01 Primary insomnia

== ENCOUNTER → 2024-12-16 10:39 | Outpatient (BNVA) | payer OTHER, SELFPAY | PROVIDERS: PCP Internal Medicine; Visit Provider Internal Medicine | DX: G43.909 Migraine, unspecified, not intractable, without status migrainosus (principal); K52.832 Lymphocytic colitis; R00.2 Palpitations; D39.10 Neoplasm of uncertain behavior of unspecified ovary; E55.9 Vitamin D deficiency, unspecified; I83.813 Varicose veins of bilateral lower extremities with pain; R76.8 Other specified abnormal immunological findings in serum; F51.01 Primary insomnia; Z79.899 Other long term (current) drug therapy | CPT/HCPCS: 96127 ==

== ENCOUNTER 2025-03-16 12:33 | Outpatient (AMB) | payer OTHER, SELFPAY ==
--- OUTSIDE RECORDS SUMMARY | 2025-03-15 23:59 | XMS_ITS | Continuity of Care Document ---
Author Organization [facility] Address [address] [place] [address]- Care Team Providers Care Electrical Helper Name Role Phone Elliott OSBORN, Brice Bryson Primary Care Physician [phone] [place] [facility] [place] [place]): [place]13[place] 03/15/25 [facility] [address] [place] [address]- Encounter Type: Triage Allergies, Adverse Reactions, Alerts Substance Criticality Severity Reaction Reaction Severity Status penicillin Rash Active mesalamine Vomiting bile Activ e sulfa drugs welts Active Levaquin Chest Pain Active traZODone difficulty nisreen athing made me feel Wide awake, instead of drowsy Active Medications acetaminophen 325 mg oral tablet 975 mg, 3, tablet, By Mouth, 4 times a day, PRN, for 7 days, # 84 tablet, Refills 0, Tot. Refills 0, Acute 03/16/25 11:55:00 AM EDT, as needed for pain, 03/09/25 11:55:00 AM EDT, Route to Pharmacy Electronically, [facility]/pharmacy #[id number], Partial fill upon patient request if the prescription is for a schedule II opioid drug., 160, cm, 03/05/25 10:58:00 EDT, Height, 43.2, kg, 03/09/25 9:23:00 EDT, Dry Weight Start Date: 03/09/25 Stop Date: 03/16/25 Status: Ordered Quantity: 84.0 Unit: tablet Repeat number: 1 ibuprofen 600 mg oral tablet 600 mg, 1, tablet, By Mouth, Every 6 hours, PRN, # 30 tablet, Refills 0, Tot. Refills 0, Maintenance, Pain , Mild, 02/27/24 4:16:00 PM EDT, Route to Pharmacy Electronically, [facility]/pharmacy #[id number], Partialfill upon patient request if the prescription is for a schedule II opioid drug., 160.7, cm, 02/27/24 11:56:00 EDT, Height, 48.8, kg, 02/20/24 14:53:00 EDT, Dry Weight Start Date: 02/27/24 Status: Ordered Quantity: 30.0 Unit: tablet Repeat number: 1 letrozole 2.5 mg oral tablet 1 tablet = 2.5 mg, By Mouth, Daily, # 90 tablet, 3 Refills, Maintenance, 05/30/24 12:19:00 PM EDT, Tablet, [facility]/pharmacy #[id number], Partial fill upon patient request if the prescription is for a schedule II opioid drug., 160, cm, 05/05/24 8:35:00 EDT, Height, 47.7, kg, 05/05/24 8:35:00 EDT, Dry Weight Start Date: 05/30/24 Stop Date: 05/25/25 Status: Ordered Quantity: 90.0 Unit: tablet Repeat number: 4 loperamide 2 mg oral capsule 2 mg, 1, capsule, By Mouth, Every 4 hours, PRN, # 60 capsule, Refills 1, Tot. Refills 1, Maintenance, for loose stool, 08/28/23 7:24:00 PM EST, Route to Pharmacy Electronically, [facility]/pharmacy #[id number], Partial fill upon patient request if the prescription is for a schedule II opioid drug., 160, cm, 08/28/23 19:03:00 EST, Height, 52.6, kg, 08/02/23 11:15:00 EST, Dry Weight Start Date: 08/28/23 Status: Ordered Quantity: 60.0 Unit: capsule Repeat number: 2 meclizine 12.5 mg oral tablet 1 tablet = 12.5 mg, By Mouth, 3 times a day, PRN for dizziness, # 30 tablet, 0 Refills, Maintenance, 05/05/24 8:38:00 AM EDT, Tablet, [facility]/pharmacy #[id number], Partial fill upon patient request if the prescription is for a schedule II opioid drug., 160, cm, 05/05/24 8:35:00 EDT, Height, 47.7, kg, 05/05/24 8:35:00 EDT, Dry Weight Start Date: 05/05/24 Status: Ordered Quantity: 30.0 Unit: tablet Repeat number: 1 Indications: Dizziness and giddiness; metoclopramide 10 mg oral tablet 1 tablet, By Mouth, Daily at bedtime, TAKE 30 MINUTES BEFORE CHEMOTHERAPY, # 30 tablet, 2 Refills, Maintenance, 12/18/24 10:34:00 AM EDT, [facility] STORE [id number], 160, cm, 10/07/24 11:40:00 EST, Height, 47.4,kg, 10/07/24 11:40:00 EST, Dry Weight Start Date: 12/18/24 Stop Date: 01/17/25 Status: Ordered Quantity: 30.0 Unit: tablet Repeat number: 1 MiraLax oral powder for reconstitution = 17 Gm, By Mouth, Daily, for 10 days, dissolve in water before taking, # 527 Gm, 0 Refills, Acute 03/19/25 11:56:00 AM EDT, 03/09/25 11:56:00 AM EDT, REC Powder, [facility]/pharmacy #[id number], Partial fill upon patient request if the prescription is for a schedule II opioid drug., 17 Gm By Mouth Daily,x10 days, Instr:dissolve in water before taking, 160, cm, 03/05/25 10:58:00 EDT, Height, 43.2, kg, 03/09/25 9:23:00 EDT, Dry Weight Start Date: 03/09/25 Stop Date: 03/19/25 Status: Ordered Quantity: 527.0 Unit: g Repeat number: 1 Propranolol 80 mg, By Mouth, Daily at bedtime, Refills 0, Maintenance, 05/10/23 3:56:00 PM EDT, Partial fill upon patient request if the prescription is for a schedule II opioid drug. Start Date: 05/10/23 Status: Ordered Repeat number: 1 Readi-Cat 2 Smoothie Creamy Vanilla 2% oral suspension See Instructions, If scan before 12PM; drink one bottle before bed, second bottle 90 mins before scan. If scan after noon; drink one bottle at 8 AM, second bottle 90 mins before scan. If scan after 4PM; drink one bottle 6 hours before, second bottle 90 mins before scan., # 2 each, 0 Refills, Maintenance, 11/03/24 2:48:00 PM EDT, [facility]/pharmacy #[id number], Partial fill upon patient request if the prescription is for a schedule II opioid drug., If scan before 12PM; drink one bottle before bed, second bottle 90 mins before scan. ; If scan after noon; drink one bottle at 8 AM, second bottle 90 mins before scan. If scan after 4PM; drink one bottle 6 hours before, second bottle 90 mins before scan., 160,cm, 10/07/24 11:40:00 EST, Height, 47.4, kg, 10/07/24 11:40:00 EST, Dry Weight Start Date: 11/03/24 Status: Ordered Quantity: 2.0 Unit: each Repeat number: 1 senna - oral tablet 2 tablet, By Mouth, Daily at bedtime, PRN for constipation, for 7 days, # 80 tablet, 0 Refills, Acute 03/16/25 11:56:00 AM EDT, 03/09/25 11:56:00 AM EDT, Tablet, [facility]/pharmacy #[id number], Partial fill upon patient request if the prescription is for a schedule II opioid drug., 160, cm, 03/05/25 10:58:00 EDT, Height, 43.2, kg, 03/09/25 9:23:00 EDT, Dry Weight Start Date: 03/09/25 Stop Date: 03/16/25 Status: Ordered Quantity: 80.0 Unit: tablet Repeat number: 1 simethicone 125 mg oral capsule 1 capsule = 125 mg, By Mouth, 4 times a day, PRN Gas, # 30 capsule, 0 Refills, Maintenance, 02/27/24 4:16:00 PM EDT, Capsule, [facility]/pharmacy #[id number], Partial fill upon patient request if the prescription is for a schedule II opioid drug., 160.7, cm, 02/27/24 11:56:00 EDT, Height, 48.8, kg, 02/20/24 14:53:00 EDT, Dry Weight Start Date: 02/27/24 Status: Ordered Quantity: 30.0 Unit: capsule Repeat number: 1 simethicone 80 mg oral tablet, chewable 80 mg, 1, tablet, By Mouth, 3 times a day after meals and bedtime, for 7 days, # 90 tablet, Refills0, Tot. Refills 0, Acute 03/16/25 11:56:00 AM EDT, 03/09/25 11:56:00 AM EDT, Route to Pharmacy Electronically, [facility]/pharmacy #[id number], Partial fill upon patient request if the prescription is for a schedule II opioid drug., 160, cm, 03/05/25 10:58:00 EDT, Height, 43.2, kg, 03/09/25 9:23:00 EDT, Dry Weight Start Date: 03/09/25 Stop Date: 03/16/25 Status: Ordered Quantity: 90.0 Unit: tablet Repeat number: 1 Sumatriptan = 50 mg, By Mouth, Once, PRN Headache, 0 Refills, Maintenance, 05/10/23 3:57:00 PM EDT, Partial fillupon patient request if the prescription is for a schedule II opioid drug. Start Date: 05/10/23 Status: Ordered Repeat number: 1 Topamax 25 mg oral tablet 1 tablet = 25 mg, By Mouth, Daily at bedtime, 0 Refills, Maintenance, 05/10/23 3:57:00 PM EDT, Partial fill upon patient request if the prescription is for a schedule II opioid drug. Start Date: 05/10/23 Status: Ordered Repeat number: 1 Zolpidem = 10 mg, By Mouth, Daily at bedtime, 0 Refills, Maintenance, 05/10/23 3:57:00 PM EDT, Partial fill upon patient request if the prescription is for a schedule II opioid drug. Start Date: 05/10/23 Status: Ordered Repeat number: 1 Problem List Condition Confirmation Course Effective Dates Status H ealth Status Informant Elevated tumor markers Confirmed Active Cystocele with rectocele Confirmed Active Diarrhea due to drug Confirmed Active Maintenance antineoplastic chemotherapy Confirmed Active History of granulosa cell tumor of left ovary, at least stage 1C. Had total hysterectomy and bilateral salpingo-oophorectomy 07/18/23. [ ] following with [facility] On[facility] Confirmed Active Arthralgia of left hip Confirmed Active Lymphocytic colitis - frequent bouts of diarrhea Confirmed Active Ovarian cancer on right Confirmed Active Menopausal state Confirmed Active Pelvic cramping Confirmed Active Use of letrozole (Femara) Confirmed Active Most recent pap smear 01/18/23 at [facility] was negative with negative HPV. Status post total laparoscopic hysterectomy 07/18/23 with benign cervical pathology. No further Pap smears needed Confirmed Active Granulosa cell tumor of ovary Confirmed Active History of thoracic outlet syndrome Confirmed Active Underweight Confirmed Active Social History Social History Type Response Smoking Status Never (less than 100 in lifetime) entered on: 07/12/23 Sex Sex Representation Female (finding) Patient Care team information Care Team Personnel Name: Brice Gallagher MD Position: Reference Physician Member Role: PCP Address: [address] [place] [address] [place] [address] Telecom: Care Team Related Persons Name: ALENA ZAYAS Insurance Providers Guarantor name: OVIDIO ZAYAS Health Plan Information #: 1 Payer: [employer] POS Payer Identifier: NA Member Number: [id number] Group Number: [id number] Subscriber Identifier: [id number] Relationship to Subscriber: spouse Coverage Type: Managed Care (Private) Coverage Verification Date: NA Telecom: NA Address: NA
--- NOTE | 2025-03-16 13:16 | MHC.OFFVIS ---
Vital Signs 03/16/25 13:18 Height 5 ft 3 in Weight 99 lb 3.328 oz BMI 17.6 BP 149/77 H Blood Pressure Location Lt brachial Position Sitting Pulse 70 Intake Visit Reasons: Lymphocytic coliti Intake Note: Mayra presents in the office as a follow up today. CC: She is 1 week post op of her cancer surgery. States she has diarrhea with everything that she eats and that has been going on for quite some time now. Procurement Specialist Required: No Allergies nirmatrelvir (From Paxlovid) Allergy (Severe, Verified 03/16/25 13:19) Diarrhea ritonavir (From Paxlovid) Allergy (Severe, Verified 03/16/25 13:19) Diarrhea levofloxacin (Levaquin) Allergy (Intermediate, Verified 03/16/25 13:19) chest pains penicillin V Allergy (Intermediate, Verified 03/16/25 13:19) rash, vomiting Sulfa (Sulfonamide Antibiotics) Allergy (Intermediate, Verified 03/16/25 13:19) welts, rash topiramate Adverse Reaction (Intermediate, Verified 03/16/25 13:19) weight loss, depression trazodone Adverse Reaction (Intermediate, Verified 03/16/25 13:19) nausea, dizziness HPI HPI Lymphocytic coliti: Details: 59 yr old patient being called for diarrhea and hx of polyps RECAP: has bad diarrhea, whatever she eats go thru her she use to see Dr Flores and was given budesonide and she felt it never worked for her she is living on imodium she has nausea, vomiting, once-twice a month she has mid abdominal pain, helped by imodium, releasing stool doesn;t always help sometimes sees blood mixed with stool she had egd, colonoscopy 3 yrs ago she is lactose intolerant, tried to avoid, atakes lactaid pills no herbs takes green tea CT: Question focal wall thickening/mass of the distal stomach/antrum. Prominent vasa recta adjacent to the colon. No evidence of active colitis. Liver cyst. Enlarged probable fibroid uterus. EGD/colonoscopy: Endoscopy Findings: gastritis bile acid reflux Colonoscopy Findings: internal hemorrhoids PTH: A. Duodenum, biopsy: Duodenal mucosa with preserved villi and no specific change. B. Stomach, biopsy: Gastric antral and body mucosa with reactive change and mild chronic inactive gastritis; negative for H pylori, intestinal metaplasia and dysplasia. C. Gastroesophageal junction, biopsy: Squamous mucosa with hyperplasia and no significant inflammation; no columnar mucosa present. D. Esophagus, random, biopsy: Squamous mucosa with no specific change; no columnar mucosa present. E. Terminal ileum, biopsy: Ileal mucosa with focal increased intraepithelial lymphocytes (see comment). F. Colon, random, biopsy: Lymphocytic colitis pattern RECAP: she is just recovering from ovarian cancer she just had surgery she has ongoing diarrhea she was intolerant still having diarrhea, 6 times a day even with imodium, was unable to take mesalamine due to SE EXAM: GENERAL: The patient is well developed and nontoxic. VITAL SIGNS:see workflow HEENT: Nonicteric sclerae, PERRLA, EOMI. Oropharynx clear. Moist mucous membranes. Conjunctivae appear well perfused. No thyroid mass. CHEST: Chest wall is nontender. HEART: Regular rate and rhythm without murmurs. LUNGS: Clear to auscultation bilaterally. ABDOMEN: Soft, positive bowel sounds, nontender, no organomegaly.no flank tenderness SKIN: No rash, no excessive bruising, petechiae, or purpura. NEUROLOGIC: Cranial nerves II-XII intact without motor/sensory deficit. Psych: normal affect A/P: 1/ Ongoing diarrhea, due to lymphocytic colitis, also on reglan Plan: 1/ stop reglan 2/ use zofran 3. try bismuth 4/ if ongoing then lomotil, cant have entyvio or biologic due to cancer PFSH Medical History Granulosa cell tumor of ovary COVID-19 vaccine series completed History of COVID-19 Family history of early CAD Positive GURU (antinuclear antibody) Vitamin D deficiency Varicose veins of both lower extremities with pain Lymphocytic colitis Palpitations Migraine Colitis Tachycardia Surgical History History of total hysterectomy History of dilatation and curettage History of esophagogastroduodenoscopy (EGD) History of colonoscopy Status post laser ablation of incompetent vein (~03/2018) History of tubal ligation Hx of cholecystectomy H/O section Hx of resection of rib Family History Father Cancer of pancreas Mother CVD (cardiovascular disease) Brother CVD (cardiovascular disease) Paternal Uncle Colon cancer Social History Housing: House Alcohol intake: former Patient Tobacco Use Status: Never used Tobacco e-Cigarette/Vaping Use: Never Used Second Hand Smoke Exposure: No service: No Current occupational status: employed Current occupation: health care/ right hand dominant Cognitive needs: No Hearing needs: No Vision needs: Yes (Glasses) Physical Exam Vital Signs: Last Vital Signs Pulse 70 03/16/25 13:18 BP 149/77 H 03/16/25 13:18 BMI result Body Mass Index 17.6 Assessment & Plan Assessment & Plan (1) Lymphocytic colitis: Code(s): K52.832 - Lymphocytic colitis Category: Medical Plan as above Medications: New bismuth subsalicylate (Bismuth) 2 tabs PO QID 336 tabs 0RF 6 weeks ondansetron 4 mg PO Q8H PRN 60 tabs 1RF nausea and vomiting Coding Level of Care Code Est Pt Level 3 (20248) Diagnoses Lymphocytic colitis K52.832
[2025-03-16 13:18] VITALS: BP 149/77; PULSE 70; BMI 17.6
== END 2025-03-16 13:44 | disposition home or self-care (01) ==
LOC: HO.HGI 12:34
PROVIDERS: PCP Internal Medicine; Visit Provider Internal Medicine Gastroenterology
DX: K52.832 Lymphocytic colitis (principal)
CPT/HCPCS: 99213

== ENCOUNTER 2025-04-13 11:06 | Outpatient (REF) | payer OTHER, SELFPAY ==
--- NOTE | ~2025-04-13 | XR_ITS ---
EXAMINATION: XR SHOULDER, RIGHT CLINICAL INFORMATION: M25.511 - Pain in right shoulder COMPARISON: July 14, 2022. TECHNIQUE: AP external rotation, Grashey, scapular Y, and axillary views of the right shoulder. FINDINGS: Subchondral cyst formation within the glenoid of the scapula and to a lesser extent at the common clavicular joint and greater tuberosity of the humerus. No acute cortical disruption or malalignment. No lytic or blastic lesions. No soft tissue calcifications. XR/XR shoulder RT min 2V IMPRESSION: Mild osteoarthritis Electronically signed by: José Luis Vargas MD 04/13/2025 11:41 AM EDT
== END 2025-04-13 11:07 | disposition home or self-care (01) ==
LOC: HO.XRAY 11:06
PROVIDERS: PCP Internal Medicine; Visit Provider Internal Medicine
DX: M25.511 Pain in right shoulder (principal)
CPT/HCPCS: 73030

== ENCOUNTER → 2025-04-13 11:10 | Outpatient (BNV) | payer OTHER, SELFPAY | PROVIDERS: PCP Internal Medicine; Visit Provider Radiology Diagnostic Radiology | DX: M25.511 Pain in right shoulder (principal) | CPT/HCPCS: 73030 ==

== ENCOUNTER 2025-05-28 08:23 | Outpatient (REF) | payer OTHER, SELFPAY | END 2025-05-28 08:24 | disposition home or self-care (01) | LOC: HO.HOSX 08:23 | PROVIDERS: Visit Provider Physician Assistant | DX: M75.01 Adhesive capsulitis of right shoulder (principal) | CPT/HCPCS: 20610; J0665; J1100; J2003 ==

== ENCOUNTER 2025-05-28 14:56 | Outpatient (AMB) | payer OTHER, SELFPAY ==
--- NOTE | 2025-05-28 15:05 | A.OFFVIS_ITS ---
Intake Visit Reasons: OV - right shoulder pain, last injection 07/14/22 Intake Note: robert is a 60 year old female who presents today for a follow up of her right shoulder pain. Patient reports ongoing pain since her last injection gave her relief. She mentions that her pain is feeling different when she got her last injection. Patient thinks she might have a tear. Allergies nirmatrelvir (From Paxlovid) Allergy (Severe, Verified 05/28/25 15:13) Diarrhea ritonavir (From Paxlovid) Allergy (Severe, Verified 05/28/25 15:13) Diarrhea levofloxacin (Levaquin) Allergy (Intermediate, Verified 05/28/25 15:13) chest pains penicillin V Allergy (Intermediate, Verified 05/28/25 15:13) rash, vomiting Sulfa (Sulfonamide Antibiotics) Allergy (Intermediate, Verified 05/28/25 15:13) welts, rash topiramate Adverse Reaction (Intermediate, Verified 05/28/25 15:13) weight loss, depression trazodone Adverse Reaction (Intermediate, Verified 05/28/25 15:13) nausea, dizziness HPI HPI OV - right shoulder pain, last injection 07/14/22: Details: Ms. Hull is a 60-year-old right-hand dominant female who presents to the office today for right shoulder pain. She reports that the pain began in January of this year. There was no inciting injury or trauma to the right shoulder. She has not had any treatment other than a cortisone injection that she had in the right shoulder in 2021 but states that this is a different type of pain. She works as a [employer] INS[employer]OR [employer] P[employer]ER and does a lot of heavy lifting but can not attribute an injury to the right shoulder. COUNTS INCLUDE 234 BEDS AT THE [facility] Medical History Granulosa cell tumor of ovary COVID-19 vaccine series completed History of COVID-19 Family history of early CAD Positive GURU (antinuclear antibody) Vitamin D deficiency Varicose veins of both lower extremities with pain Lymphocytic colitis Palpitations Migraine Colitis Tachycardia Surgical History History of total hysterectomy History of dilatation and curettage History of esophagogastroduodenoscopy (EGD) History of colonoscopy Status post laser ablation of incompetent vein (~03/2018) History of tubal ligation Hx of cholecystectomy H/O section Hx of resection of rib Family History Father Cancer of pancreas Mother CVD (cardiovascular disease) Brother CVD (cardiovascular disease) Paternal Uncle Colon cancer Social History Housing: House Alcohol intake: former Patient Tobacco Use Status: Never used Tobacco e-Cigarette/Vaping Use: Never Used Second Hand Smoke Exposure: No service: No Current occupational status: employed Current occupation: health care/ right hand dominant Cognitive needs: No Hearing needs: No Vision needs: Yes (Glasses) Review of Systems Const All systems reviewed & are unremarkable except as noted in HPI and below Physical Exam Const General: cooperative, healthy appearing and no acute distress Resp Effort & Inspection: normal respiratory effort and able to speak in complete sentences Extrem Other: Right shoulder range of motion 90 degrees forward flexion 45 degrees abduction able to reach greater troch. Pain with cross-body reach and range of motion restriction. No range of motion with external rotation. No additional special tests were of attempted due to pain and range of motion restriction. NVI. Psych Appearance: grossly normal Mental Status: mental status grossly normal Attitude: cooperative Office Procedures AMB Joint Injection/Aspiration Joint Injection/Aspiration Primary Site: right shoulder Prep: site was prepped using aseptic technique, ethochloride spray was applied and injection warnings given Injected: 40 mg of, with 3 mL of, 1% plain lidocaine, 0.25% bupivacaine, in the subcromial space and decadron Approach Used: posterolateral Procedure: The patient tolerated the procedure well, but had some pain with the injection and there was some relief with the local anesthesia Coding 65940 - Large joint Procedure code (CPT) selection complete Assessment & Plan Assessment & Plan (1) Adhesive capsulitis of right shoulder: Code(s): M75.01 - Adhesive capsulitis of right shoulder Category: Medical Plan Ms. Hull is a 60-year-old right-hand dominant female who presents to the office today for right shoulder pain. She reports that the pain began in January of this year. There was no inciting injury or trauma to the right shoulder. She has not had any treatment other than a cortisone injection that she had in the right shoulder in 2021 but states that this is a different type of pain. She works as a [employer] and does a lot of heavy lifting but can not attribute an injury to the right shoulder. While the office today we discussed conservative treatment options including cortisone injection and physical therapy. The patient is amenable to do both of these. The patient was offered a cortisone injection in the right shoulder. The patient was explained the risks, benefits, and alternatives to receiving this injection. After receiving consent for the injection, the patient had the procedure done while in the office today. The patient tolerated the procedure well with no complications. Additionally, formal physical therapy order has been placed in the office today in which the patient will attend. Follow-up will be 6-8 weeks, or sooner if needed X-rays obtained on 04/13/2025 with a right shoulder are negative for any acute fracture or dislocation. There is some degenerative changes over the AC joint. Coding Level of Care Code Est Pt Level 3 (93280) Diagnoses Adhesive capsulitis of right shoulder M75.01 CPT Codes Coding - 26129 Large joint: 93412 - Large joint ([id number])
== END 2025-05-28 15:30 | disposition home or self-care (01) ==
LOC: HO.HOS 14:56
PROVIDERS: PCP Internal Medicine; Visit Provider Physician Assistant
DX: M75.01 Adhesive capsulitis of right shoulder (principal)
CPT/HCPCS: 20610; 99213

== ENCOUNTER 2025-06-18 14:24 | Outpatient (REF) | payer OTHER, SELFPAY | END 2025-06-18 14:25 | disposition home or self-care (01) | LOC: HO.MAMMO 14:24 | PROVIDERS: PCP Internal Medicine; Visit Provider Internal Medicine | DX: Z12.31 Encounter for screening mammogram for malignant neoplasm of breast (principal) | CPT/HCPCS: 77063; 77067 ==

== ENCOUNTER → 2025-06-18 14:30 | Outpatient (BNV) | payer OTHER, SELFPAY | PROVIDERS: PCP Internal Medicine; Visit Provider Internal Medicine | DX: Z12.31 Encounter for screening mammogram for malignant neoplasm of breast (principal) | CPT/HCPCS: 77063; 77067 ==

== ENCOUNTER 2025-07-16 15:05 | Outpatient (AMB) | payer OTHER, SELFPAY ==
--- NOTE | 2025-07-16 15:07 | A.OFFVIS_ITS ---
Intake Visit Reasons: OV-right shoulder pain, last inj 05/28/25-F/U Intake Note: Mayra is a 60 year old right hand dominant female who presents today for a follow up of her right shoulder pain, last injection was on 05/28/25. At her last visit she was given an injection and physical therapy. She states that her injection gave her minimal relief but physical therapy is slowly improving. Patient notices that she is still limited. Allergies nirmatrelvir (From Paxlovid) Allergy (Severe, Verified 05/28/25 15:13) Diarrhea ritonavir (From Paxlovid) Allergy (Severe, Verified 05/28/25 15:13) Diarrhea levofloxacin (Levaquin) Allergy (Intermediate, Verified 05/28/25 15:13) chest pains penicillin V Allergy (Intermediate, Verified 05/28/25 15:13) rash, vomiting Sulfa (Sulfonamide Antibiotics) Allergy (Intermediate, Verified 05/28/25 15:13) welts, rash topiramate Adverse Reaction (Intermediate, Verified 05/28/25 15:13) weight loss, depression trazodone Adverse Reaction (Intermediate, Verified 05/28/25 15:13) nausea, dizziness HPI HPI OV-right shoulder pain, last inj 05/28/25-F/U: Details: Ms. Hull is a 60-year-old right-hand dominant female who presents to the office today for follow up of right shoulder adhesive capsulitis. He she received an injection on 05/28/2025 which did give her some relief. She has been attending physical therapy and working on range of motion. She has noticed some improvement in her range of motion but continues to have significant limitations. [facility] Medical History Granulosa cell tumor of ovary COVID-19 vaccine series completed History of COVID-19 Family history of early CAD Positive GURU (antinuclear antibody) Vitamin D deficiency Varicose veins of both lower extremities with pain Lymphocytic colitis Palpitations Migraine Colitis Tachycardia Surgical History History of total hysterectomy History of dilatation and curettage History of esophagogastroduodenoscopy (EGD) History of colonoscopy Status post laser ablation of incompetent vein (~03/2018) History of tubal ligation Hx of cholecystectomy H/O section Hx of resection of rib Family History Father Cancer of pancreas Mother CVD (cardiovascular disease) Brother CVD (cardiovascular disease) Paternal Uncle Colon cancer Social History Housing: House Alcohol intake: former Patient Tobacco Use Status: Never used Tobacco e-Cigarette/Vaping Use: Never Used Second Hand Smoke Exposure: No service: No Current occupational status: employed Current occupation: health care/ right hand dominant Cognitive needs: No Hearing needs: No Vision needs: Yes (Glasses) Review of Systems Const All systems reviewed & are unremarkable except as noted in HPI and below Physical Exam Const General: cooperative, healthy appearing and no acute distress Resp Effort & Inspection: normal respiratory effort and able to speak in complete sentences Extrem Other: Right shoulder range of motion 90 degrees forward flexion 80 degrees abduction able to reach greater troch. Pain with cross-body reach and range of motion restriction. No range of motion with external rotation. Significant weakness with empty can due to pain. NVI. Psych Appearance: grossly normal Mental Status: mental status grossly normal Attitude: cooperative Assessment & Plan Assessment & Plan (1) Adhesive capsulitis of right shoulder: Code(s): M75.01 - Adhesive capsulitis of right shoulder Category: Medical Plan Ms. Hull is a 60-year-old right-hand dominant female who presents to the office today for follow up of right shoulder adhesive capsulitis. He she received an injection on 05/28/2025 which did give her some relief. She has been attending physical therapy and working on range of motion. She has noticed some improvement in her range of motion but continues to have significant limitations. While in the office today, I have recommended the patient continue physical therapy in which a new order has been placed. The focus should remain on range of motion at this time. Continuation of [id number] anti-inflammatories and pain relievers as needed for pain if approved by her PCP. She will see me back in 3 months. At that time if she continues to have pain and significant range of motion limitations the plan will be to order an MRI. She will follow up in 3 months, sooner if needed. Coding Level of Care Code Est Pt Level 3 (37928) Diagnoses Adhesive capsulitis of right shoulder M75.01
== END 2025-07-16 15:26 | disposition home or self-care (01) ==
LOC: HO.HOS 15:05
PROVIDERS: PCP Internal Medicine; Visit Provider Physician Assistant
DX: M75.01 Adhesive capsulitis of right shoulder (principal)
CPT/HCPCS: 99213

== ENCOUNTER 2025-07-20 10:22 | Outpatient (RCR) | payer OTHER, SELFPAY ==
--- NOTE | 2025-06-18 16:34 | MHC.PT.EP ---
[facility] [place] [facility] [place] [facility] [place] Office [address] Onur Childress [address] [phone] F: [phone] F: [phone] F: [phone] F: [phone] Physical Therapy Plan of Care Date of Evaluation: 06/17/25 Date of Surgery: n/a Diagnosis: Adhesive capsulitis of right shoulder Assessment: Pt is a pleasant and motivated 60yo F who presents to PT with R shoulder adhesive capsulitis. Pt presents to PT with current impairments in pain, decreased ROM, decreased strength, soft tissue restrictions, and impaired posture. She is limited functionally by lying down, lifting, reaching behind back, overhead ADLs, driving, and sleeping. She is a good candidate for skilled PT in order to address current impairments to facilitate return to PLOF. She is recommended to be seen 2x/week for 4 weeks and will be reassessed at that time Frequency and Duration: The patient will be seen 2x/week for 4 weeks Short Term Goals: Pt will be I with HEP to promote self management of symptoms Pt will improve R shoulder flexion by at least 10 degrees Pt will improve R shoulder ER to 10 degrees Half-Way Goals: Pt will improve R shoulder flexion ROM to at least 130 degrees to assist with lifting Pt will perform overhead ADLs without compensation Pt will demonstrate ability to lift 1# object to eye level shelf Pt will demonstrate improvements in function as evidenced by statistically significant improvement in SPADI outcome measure Treatment Plan: Modalities to reduce pain, spasms and effusion. Manual therapy to restore motion and function. Therapeutic exercise to improve strength and flexibility. Neuromuscular re-education for posture and balance. Therapeutic activities to return to functional activities of daily living. Electronically signed by: Ketty Candelaria, PT, DPT Please sign and return to therapist. Thank you for your referral.
--- NOTE | 2025-07-28 15:25 | MHC.PT.DC ---
[facility] [place] [facility] [place] [facility] [place] [facility] [address] Onur Childress [address] [phone] F: [phone] F: [phone] F: [phone] F: [phone] Physical Therapy Discharge Report Diagnosis: Adhesive capsulitis of right shoulder Date of Surgery: n/a Date of Evaluation: 06/17/25 Date of Discharge: 07/28/25 Treatments to Date: 10 Cancellations to Date: No Shows to Date: Discharge Status: Discharge Summary: Pt was seen for skilled PT from 06/17/25-07/20/25. Her last attended appointment was 07/20/25. She called to D/C from PT reporting her insurance is not authorizing any more appointments. She made good progress with skilled PT but continued to have decreased R shoulder ROM in capsular pattern. She demonstrated independence with ROM HEP. She is being D/C from skilled PT Electronically signed by: Ketty Candelaria, PT, DPT Please sign and return to therapist. Thank you for your referral.
== END 2025-07-28 15:25 | disposition home or self-care (01) ==
LOC: HO.PT 10:22
PROVIDERS: PCP Internal Medicine; Visit Provider Physician Assistant
DX: M75.01 Adhesive capsulitis of right shoulder (principal)
CPT/HCPCS: 97110; 97162